=== PATIENT | female | born 1955 | race Caucasian/White ===

== ENCOUNTER 2018-01-20 11:44 | Emergency (ER) | payer OTHER, SELFPAY ==
[2018-01-20 11:48] VITALS: BP 131/55; PULSE 83; RESP 16; TEMP 37; O2SAT 98
--- NOTE | 2018-01-20 12:25 | DI.CT_ITS ---
SYMPTOMS/DIAGNOSIS: ABDOMINAL WALL ABSCESS ABDOMINAL AND PELVIC CT: The study was carried out with an intravenous injection of 100 cc's of Omnipaque 350. There are small regions of dependent atelectasis involving the lung bases. The liver is unremarkable. The patient is status post cholecystectomy. The pancreas and spleen are unremarkable. A 2 cm right upper pole right renal cyst is noted. The kidneys are otherwise unremarkable. The adrenals are normal. There is no evidence of bowel obstruction. The appendix is not seen, but there is nothing to suggest an acute appendix. There are a few scattered diverticula involving the distal descending colon. There is no evidence of diverticulitis. There is no evidence of free air or free fluid in the intraperitoneal space. The bladder is suboptimally distended but appears intact. The uterus is retroflexed. Somewhat prominent blood vessels are identified in the perirectal and periuterine soft tissues. There is a 4.3 x 2.8 cm area of increased absorption in the subcutaneous fat lying in the midline just above the level of the umbilicus which certainly could represent a small abscess. There is no evidence of an abdominal hernia. There are atherosclerotic changes involving the aorta without evidence of an aneurysm. SUMMARY: A 4.3 x 2.8 cm region of increased absorption in the midline subcutaneous fat in the mid abdomen is demonstrated and would be consistent with an abscess.
--- NOTE | 2018-01-20 12:29 | ED.GENADUL_ITS ---
Discharge Plan Disposition Patient Disposition: HOME Condition: Stable Discharge Details Chief Complaint: Cellulitis Clinical Impression: Abdominal wall cellulitis Primary Care Provider: Wilber Diaz ED Provider: Ronnie Humphries Home Meds and New Rx's Prescriptions: New cephalexin [Keflex] 500 mg capsule 500 mg PO QID Qty: 28 RF: 0 doxycycline hyclate 100 mg tablet 100 mg PO BID Qty: 14 RF: 0 Continue cholecalciferol (vitamin D3) 1,000 UNIT capsule 1,000 unit PO DAILY Qty: 90 RF: 4 losartan 50 MG tablet 25 mg PO qd Qty: 90 RF: 4 hydrochlorothiazide 12.5 MG tablet 12.5 mg PO DAILY Qty: 90 RF: 4 Discharge Instructions Instructions: Cellulitis (ED) Additional Instructions: For any rapidly worsening symptoms, fever, or not improving please feel free to return to the emergency department otherwise call your primary care office in the morning for arrangement of follow-up appointment for reassessment preferably in 3 days. Take your antibiotics until fully complete and you may continue to use [id number] pain medication as needed for discomfort. Referrals: Wilber Diaz MD [Primary Care Provider] - 3 days (For reassessment of cellulitis) Discharge Data Discharge Date/Time-TO BE ENTERED AT DEPARTURE: 01/20/18 14:22 Medical Decision Making MDM Narrative Medical decision making narrative: Patient presenting to the emergency department for chief complaint of abdominal wall cellulitis. Patient states approximately 1 week ago she noticed a small pimple chest superior to the right of her umbilicus. Patient attempted to express any fluid from this area was unable to. Over the next couple days it seemed to worsen and in the last 48 hours has become significantly reddened, firm, and increase in tenderness. Patient does state some chills yesterday that she attributes to the change of weather but otherwise denies any fever, nausea vomiting diarrhea, chest pain or shortness of breath. Physical exam does show a significantly reddened erythematous abrasion to the abdominal wall just right superior to the umbilicus with no obvious fluctuance. Bedside ultrasound shows significant depth of possible inoculations so plan to obtain IV access, check CBC CMP, and CT abdomen for concern of infection possibly penetrating abdominal wall. Review of labs that do show a leukocytosis otherwise are nondiagnostic and CT imaging showing abdominal wall cellulitis without any involvement of the abdominal cavity and no significant abscess patient was placed upon Keflex and doxycycline and also put on referral list for primary care follow-up in 3 days for abdominal wall cellulitis. Patient encouraged to return for any new or worsening symptoms or rapid progression of redness. After discussion of diagnosis and plan of care patient states no further needs, questions, or concerns at this time. Lab Data Lab results reviewed: Yes I reviewed the patient's lab results. HPI - General Adult General Mode of arrival: ambulatory . Date/Time Provider Initiated Documentation: 01/20/18 11:59 . Limitations to Documentation: no limitations . Information obtained by: patient . History of Present Illness 62 year old F presents to the emergency department with the chief complaint of Abdominal wall, described as severe, with intensity rated at 9. Quality is described as aching and sharp, and is localized to the abdomen. Patient reports no radiation. Patient started experiencing this week(s) (1) and it has been constant. No relieving factors improve symptom(s), No exacerbating factors reported . Patient notes no other symptoms.. Patient did receive the following treatments prior to arrival, none Related Data Previous Rx's Medication Instructions Recorded cholecalciferol (vitamin D3) 1,000 unit PO DAILY #90 cap 06/26/17 hydrochlorothiazide 12.5 mg PO DAILY #90 tab-cap 06/26/17 losartan 25 mg PO qd #90 tab-cap 06/26/17 cephalexin [Keflex] 500 mg PO QID #28 cap NS 01/20/18 doxycycline hyclate 100 mg PO BID #14 tab 01/20/18 Allergies Allergy/AdvReac Type Severity Reaction Status Date / Time omeprazole AdvReac Intermediate nausea Unverified 06/26/17 10:08 General Stated Complaint: Cellulitis PAOLA: 3 Review of Systems Constitutional Denies body ache(s), Reports chills and Denies fever(s) Cardiovascular Denies chest pain and Denies dyspnea Respiratory Denies dyspnea Gastrointestinal Reports as per HPI, Reports abdominal pain, Denies melena, Denies bloating, Denies constipation, Denies diarrhea, Denies nausea and Denies vomiting Integumentary/Breasts Reports as per HPI Neurologic Denies confusion and Denies sensory deficit Psychiatric Denies confusion PFSH Family History Mother Diabetes Essential hypertension Heart disease Hyperlipidemia Cerebrovascular accident Father Heart disease Neoplasm Cerebrovascular accident Sister Neoplasm Social History Smoking/Tobacco Use Status: Never Surgical History Cholecystectomy Colonoscopy - MAC (05/03/11) Ligation of fallopian tube (~1981) Exam Const General: cooperative, no acute distress and not ill appearing Orientation: alert, awake and oriented x3 HENMT Mouth: moist mucous membranes Resp Effort & Inspection: normal respiratory effort, able to speak in complete sentences and no respiratory distress Cardio Rate: regular rate Rhythm: regular rhythm GI Inspection: obesity and other (Just superior and to the right aspect of the umbilicus patient has open sore with surrounding erythema and significant induration to the abdominal wall.) Palpation: soft, not rigid, no splenomegaly and tender other (To palpation of area surrounding superficial wound and induration) Auscultation: normal bowel sounds Skin General skin exam: no rashes or lesions noted Neuro General: alert, awake, oriented x3, moves all extremities and no focal motor deficits Sensory Exam: no sensory deficits noted Course Vital Signs Temperature 37.0 C 01/20/18 11:48 Pulse 83 01/20/18 11:48 Respiratory Rate 16 01/20/18 11:48 Blood Pressure 131/55 L 01/20/18 11:48 Pulse Oximetry 98 01/20/18 11:48 Temperature 37.0 C 01/20/18 11:48 Pulse 83 01/20/18 11:48 Respiratory Rate 16 01/20/18 11:48 Blood Pressure 131/55 L 01/20/18 11:48 Pulse Oximetry 98 01/20/18 11:48
[2018-01-20 12:44] LABS: Abs Immature Grans 0.04 k/cumm (0.0-0.09); Absolute Basophil Count 0.05 k/cumm (0.0-0.2); Absolute Monocyte Count 1.14 k/cumm (0.11-0.7); Basophils % 0.4; Eosinophils % 2.2; HCT 41.5 % (36.0-46.0); HGB 13.7 g/dL (12.0-15.5); Immature Grans % 0.3; Mean Corpuscular Volume 84.9 fL (80-95); Monocytes % 8.3; Neutrophils % 73.8; Platelet Count 324 x1000/uL (130-400); RBC 4.89 m/cumm (4.00-5.20); RBC Distribution Width 12.7 % (11.7-14.6); White Blood Cell Count 13.69 k/cumm (4.4-10.8)
[2018-01-20 12:45] LABS: Absolute Lymphocyte Count 2.05 k/cumm (1.2-3.4)
[2018-01-20 12:59] LABS: ALT 19 U/L (12-78); AST 13 U/L (15-37); Alkaline Phosphatase 105 U/L (46-116); Anion Gap 7.8 mmol/L (3-11); BUN 13 mg/dL (7-18); Bilirubin, Total 0.9 mg/dL (0.2-1.0); CO2 30.2 mmol/L (21.0-32.0); CREATININE 0.75 mg/dL (0.55-1.02); Calcium 8.4 mg/dL (8.5-10.1); Chloride 104 mmol/L (98-107); Glucose 120 mg/dL (70-100); Potassium 3.4 mmol/L (3.5-5.1); Sodium 142 mmol/L (136-145); Total Protein 6.6 g/dL (6.4-8.2)
[2018-01-20] MEDS: Omnipaque 350 MG/ML 100 ML BTL IJ (13:32)
[2018-01-20 13:48] VITALS: BP 125/62; PULSE 68; RESP 17; TEMP 37.1; O2SAT 100
[2018-01-20] MEDS: Cephalexin 500 MG CAP PO (14:12)
[2018-01-20] MEDS: Doxycycline Hyclate 100 MG CAP PO (14:12)
[2018-01-20] MEDS: Ibuprofen 400 MG TAB PO (14:12)
[2018-01-20 14:21] VITALS: BP 126/48; PULSE 16; RESP 16; TEMP 37; O2SAT 99
--- NOTE | 2018-01-21 09:00 | PDOC.ERCMPRO ---
Care Management Progress Note 01/21/18-Pt seen on 01/20/18 for abdominal wall cellulitis by Jeremias Humphries NP. F/U request within 3 days sent to [facility] as Dr. Jessica Diaz is Pt's PCP.
--- NOTE | 2018-01-21 09:01 | CMPROGNOTE_ITS ---
Care Management Progress Note 01/21/18-Pt seen on 01/20/18 for abdominal wall cellulitis by Jeremias Humphries NP. F/ U request within 3 days sent to [facility] as Dr. Jessica Diaz is Pt's PCP.
== END 2018-01-20 14:22 | disposition home or self-care (01) ==
PROVIDERS: Emergency Provider Nurse Practitioner Family; PCP Family Medicine
DX: L03.311 Cellulitis of abdominal wall (principal)
CPT/HCPCS: 80053; 99285; 74177; 85025; 99284; J3490

== ENCOUNTER 2018-02-05 09:02 | Outpatient (CLI) | payer OTHER, SELFPAY ==
[2018-02-05 10:49] LABS: Abs Immature Grans 0.01 k/cumm (0.0-0.09); Absolute Basophil Count 0.07 k/cumm (0.0-0.2); Absolute Eosinophil Count 0.31 k/cumm (0.0-0.7); Absolute Lymphocyte Count 1.66 k/cumm (1.2-3.4); Absolute Monocyte Count 0.52 k/cumm (0.11-0.7); Absolute Neutrophil Count 5.48 k/cumm (1.2-6.7); Basophils % 0.9; Eosinophils % 3.9; HCT 43.4 % (36.0-46.0); HGB 14.4 g/dL (12.0-15.5); Immature Grans % 0.1; Lymphocytes % 20.6; Mean Corp. HGB Concentration 33.2 g/dL (32.0-36.0); Mean Corpuscular Hemoglobin 28.1 pg (27.0-33.0); Mean Corpuscular Volume 84.6 fL (80-95); Mean Platelet Volume 10.8 fL (8.0-11.0); Monocytes % 6.5; Platelet Count 343 x1000/uL (130-400); RBC 5.13 m/cumm (4.00-5.20); RBC Distribution Width 13.3 % (11.7-14.6); White Blood Cell Count 8.05 k/cumm (4.4-10.8)
[2018-02-05 10:53] LABS: Hemoglobin A1C 5.9 % (4.5-6.2)
[2018-02-05 11:03] LABS: ALT 22 U/L (12-78); AST 15 U/L (15-37); Albumin 3.6 g/dL (3.4-5.0); Alkaline Phosphatase 107 U/L (46-116); Anion Gap 10.2 mmol/L (3-11); BUN 19 mg/dL (7-18); Bilirubin, Total 0.8 mg/dL (0.2-1.0); CO2 23.8 mmol/L (21.0-32.0); CREATININE 0.85 mg/dL (0.55-1.02); Chloride 109 mmol/L (98-107); Glucose 97 mg/dL (70-100); Potassium 4.8 mmol/L (3.5-5.1); Sodium 143 mmol/L (136-145); Total Protein 7.1 g/dL (6.4-8.2)
== END 2018-02-05 09:22 ==
PROVIDERS: PCP Family Medicine; Visit Provider Internal Medicine
DX: E87.6 Hypokalemia (principal); R73.09 Other abnormal glucose; L03.90 Cellulitis, unspecified
CPT/HCPCS: 36415; 80053; 83036; 85025

== ENCOUNTER 2018-03-03 00:08 | Outpatient (CLI) | payer OTHER, SELFPAY ==
--- NOTE | 2018-03-03 14:05 | MERGE_ITS ---
*[facility]* *[facility]* [address] [place] [address] Date of study: 03/03/2018 Transthoracic Echocardiography M-mode, complete 2D, complete spectral Doppler, and color Doppler *STUDY CONCLUSIONS* Impressions: Aortic stenosis, new since the study of 2012. Otherwise no significant changes. Summary: 1. Left ventricle: The cavity size was mildly dilated. There was moderate focal basal hypertrophy of the septum. Systolic function was normal. The estimated ejection fraction was 60-65%. Wall motion was normal; there were no regional wall motion abnormalities. 2. Aortic valve: Trileaflet; mildly thickened, mildly calcified leaflets. Valve mobility was restricted. There was moderate regurgitation. Peak velocity (S): 3.2m/sec. VTI ratio of LVOT to aortic valve: 0.43. Valve area (VTI): 1.4cm^2. 3. Mitral valve: There was mild to moderate regurgitation directed posteriorly. 4. Right ventricle: The cavity size was normal. Wall thickness was normal. Systolic function was normal. *PATIENT PRESENTATION* Height: 160cm ((63in) ) S/D Pressure: 129 / 55 Weight: 77.1kg ((169.6lb) ) BSA: 1.88m^2 Test start time: 02:22 PM. Test stop time: 03:20 PM. PERFORMING Unknown PERFORMING [facility] ORDERING Charlene Haley REFERRING Charlene Haley COMSEC MANAGER Sara Stroud, (R)(CT), [facility] *PROCEDURE DATA* Procedure information: The patient was identified by two identifiers. This study was interpreted by [facility]. Pertinent images and digital data are archived for permanent storage and are available for subsequent review. Comparison was made to the study of 01/29/2013. Study status: Routine. Transthoracic echocardiography. M-mode, complete 2D, complete spectral Doppler, and color Doppler. A Transthoracic Echocardiogram was performed. Scanning was performed from the parasternal, apical, subcostal, and suprasternal notch acoustic windows. Images were obtained using an [id number] cardiac ultrasound machine. Image quality was adequate. Study completion: The patient tolerated the procedure well. There were no complications. History: PMH: Cardiac murmur. Hx of rheumatic fever. personal h/o disease of circulatory system. *CARDIAC ANATOMY* Left ventricle: The cavity size was mildly dilated. There was moderate focal basal hypertrophy of the septum. Systolic function was normal. The estimated ejection fraction was 60-65%. Wall motion was normal; there were no regional wall motion abnormalities. Diastolic parameters were not diagnostic. Aortic valve: Trileaflet; mildly thickened, mildly calcified leaflets. Valve mobility was restricted. Doppler: Transvalvular velocity was within the normal range. There was no stenosis. There was moderate regurgitation. VTI ratio of LVOT to aortic valve: 0.43. Valve area (VTI): 1.4cm^2. Indexed valve area (VTI): 0.7cm^2/m^2. Peak velocity ratio of LVOT to aortic valve: 0.42. Valve area (Vmax): 1.3cm^2. Indexed valve area (Vmax): 0.7cm^2/m^2. Mean velocity ratio of LVOT to aortic valve: 0.44. Valve area (Vmean): 1.4cm^2. Indexed valve area (Vmean): 0.7cm^2/m^2. Mean gradient (S): 23.1mm Hg. Peak gradient (S): 41.5mm Hg. Aorta: Aortic root: The aortic root was at upper normal limits. Ascending aorta: The ascending aorta was normal in size. Mitral valve: Structurally normal valve. Mobility was not restricted. Doppler: Transvalvular velocity was within the normal range. There was no evidence for stenosis. There was mild to moderate regurgitation directed posteriorly. Valve area by pressure half-time: 3cm^2. Indexed valve area by pressure half-time: 1.6cm^2/m^2. Peak gradient (D): 5.4mm Hg. Left atrium: The atrium was normal in size. Right ventricle: The cavity size was normal. Wall thickness was normal. Systolic function was normal. Pulmonic valve: Doppler: Transvalvular velocity was within the normal range. There was no evidence for stenosis. There was no significant regurgitation. Peak gradient (S): 3.7mm Hg. Tricuspid valve: Structurally normal valve. Doppler: Transvalvular velocity was within the normal range. There was no evidence for stenosis. There was trivial regurgitation. Pulmonary artery: Pulmonary systolic pressure was within the normal range, in the range of 25mm Hg to 30mm Hg. Right atrium: The atrium was normal in size. Pericardium: There was no pericardial effusion. Systemic veins: Inferior vena cava: Well visualized. The vessel was patent and normal in size. The respirophasic diameter changes were in the normal range (greater than or equal to 50%). Baseline ECG: Sinus bradycardia. Measurements Left ventricle Value Reference LV ID, ED, PLAX 5.9 cm 3.5 - 6.0 LV ID, ES, PLAX (H) 4.1 cm 2.1 - 4.0 LV PW thickness, ED, PLAX 0.9 cm LV end-diastolic volume, 1-p A2C 102 ml LV ejection fraction, 1-p A2C 61 % LV end-diastolic volume, 1-p A4C 98 ml LV ejection fraction, 1-p A4C 52 % LV e', lateral 0.082 m/sec LV E/e', lateral 14 LV e', medial 0.064 m/sec LV E/e', medial 18 LV e', average 0.073 m/sec LV E/e', average 16 Ventricular septum Value Reference IVS thickness, ED, PLAX 0.7 cm LVOT Value Reference LVOT ID, S 2.0 cm LVOT area 3.1 cm^2 LVOT peak velocity, S 1.36 m/sec LVOT mean velocity, S 0.99 m/sec LVOT VTI, S 34.2 cm LVOT peak gradient, S 7.4 mm Hg LVOT mean gradient, S 4.4 mm Hg Stroke volume (SV), LVOT DP 100 ml Stroke index (SV/bsa), LVOT DP 53 ml/m^2 Aortic valve Value Reference Aortic valve peak velocity, S 3.2 m/sec Aortic valve mean velocity, S 2.25 m/sec Aortic valve VTI, S 79.0 cm Aortic mean gradient, S 23.1 mm Hg Aortic peak gradient, S 41.5 mm Hg VTI ratio, LVOT/AV 0.43 Aortic valve area, VTI 1.4 cm^2 Velocity ratio, peak, LVOT/AV 0.42 Aortic valve area, peak velocity 1.3 cm^2 Velocity ratio, mean, LVOT/AV 0.44 Aortic valve area, mean velocity 1.4 cm^2 Aortic valve area/bsa, mean velocity 0.7 cm^2/m^2 Aorta Value Reference Aortic root ID, ED 3.8 cm Ascending aorta ID, A-P, S 3.7 cm RVOT Value Reference RVOT VTI, S 17.9 cm Left atrium Value Reference LA ID, A-P, ES 3.0 cm LA ID/bsa, A-P 1.6 cm/m^2 <=2.2 LA area, ES, A4C 18 cm^2 8.8 - 23.4 LA area, ES, A2C 18 cm^2 LA volume/bsa, ES, 1-p A4C 30 ml/m^2 LA volume, ES, 2-p 47 ml LA volume/bsa, ES, 2-p 25 ml/m^2 LA/aortic root ratio 0.8 Mitral valve Value Reference Mitral E-wave peak velocity 1.16 m/sec Mitral A-wave peak velocity 1.21 m/sec Mitral deceleration time (H) 253 ms 150 - 230 Mitral pressure half-time 73 ms Mitral peak gradient, D 5.4 mm Hg Mitral E/A ratio, peak 0.97 Mitral valve area, PHT, DP 3 cm^2 Pulmonary veins Value Reference Pulmonary vein peak velocity, S 0.64 m/sec Pulmonary vein peak velocity, D 0.48 m/sec Pulmonary vein velocity ratio, peak, 1.34 S/D Pulmonary vein A-wave reversal peak 0.35 m/sec velocity Pulmonary vein A-wave reversal 149 ms duration Tricuspid valve Value Reference Tricuspid regurg peak velocity 2.2 m/sec Tricuspid peak RV-RA gradient 19.4 mm Hg Right atrium Value Reference RA area, ES, A4C 9.6 cm^2 8.3 - 19.5 Pulmonic valve Value Reference Pulmonic peak gradient, S 3.7 mm Hg Legend: (L) and (H) ifeanyi values outside specified reference range. I have personally reviewed the images and have reviewed and edited the reported findings. Electronically signed by Nico Woods 03/03/2018 16:57
== END 2018-03-03 00:28 ==
PROVIDERS: PCP Family Medicine; Visit Provider Internal Medicine
DX: R01.1 Cardiac murmur, unspecified (principal); I08.0 Rheumatic disorders of both mitral and aortic valves
CPT/HCPCS: 93306

== ENCOUNTER 2018-06-29 20:00 | Outpatient (REF) | payer OTHER, SELFPAY ==
--- NOTE | 2018-06-29 14:45 | PAPFT_PTH ---
PATIENT: Mandi Vizcaino LOC: [facility] U#:[id number] AGE/SX: 62/F ROOM: RE06/29/[address]: Veronika Vera APRN : 1955 BED: DIS: 06/29/2018 SPEC #: [id number] RECD: 06/30/18 12:43 STATUS: ELPIDIO REAshley #: [id number] LEXI: 06/29/18 14:[address]: Veronika Vera DEPT: [facility] Cytology RECD BY: Barb Joseph Tissues: 1 - CX/ENDOCX FOR PAP SMEARS Procedures: PAP THIN PREP/UVM Screening HPV DNA PROBE Comments: [id number]
== END 2018-06-29 20:20 ==
LOC: LBN 20:00
DX: Z12.4 Encounter for screening for malignant neoplasm of cervix (principal); Z11.51 Encounter for screening for human papillomavirus (HPV)
CPT/HCPCS: 88142; 87624

== ENCOUNTER 2019-02-16 13:52 | Outpatient (REF) | payer OTHER, SELFPAY ==
[2019-02-16 14:49] LABS: Bilirubin Negative (Negative); Blood Trace-intact (Negative); Clarity Clear (Clear); Glucose Negative (Negative); Ketones Negative (Negative); Leukocyte Esterase Negative (Negative); Nitrite Negative (Negative); Specific Gravity 1.025 (1.005-1.025); Urobilinogen 0.2 EU/dL (Up TO 0.2); pH 5.5 (5-8)
[2019-02-16 15:09] LABS: Bacteria Negative HPF (Negative); Epithelial Cells Few HPF (Negative); RBC 0-2 (0-2); WBC 0-2 HPF (0-5)
[2019-02-16 15:10] LABS: C & S Indicated? No; Casts Negative LPF (Negative); Crystals Mod Calcium Oxalate HPF (Negative); Mucus Negative (Negative)
== END 2019-02-16 14:12 ==
LOC: LBN 13:52
DX: N39.0 Urinary tract infection, site not specified (principal)
CPT/HCPCS: 81003; 81015

== ENCOUNTER 2019-05-18 10:13 | Outpatient (CLI) | payer OTHER, MEDICARE, SELFPAY ==
[2019-05-18 11:31] LABS: HCT 44.8 % (36.0-46.0); HGB 14.9 g/dL (12.0-15.5); Mean Corp. HGB Concentration 33.3 g/dL (32.0-36.0); Mean Corpuscular Hemoglobin 28.1 pg (27.0-33.0); Mean Corpuscular Volume 84.5 fL (80-95); Mean Platelet Volume 9.4 fL (8.0-11.0); Platelet Count 335 x1000/uL (130-400); RBC Distribution Width 12.9 % (11.7-14.6); White Blood Cell Count 7.26 k/cumm (4.4-10.8)
[2019-05-18 12:52] LABS: ALT 24 U/L (14-59); AST 14 U/L (15-37); Albumin 3.9 g/dL (3.4-5.0); Alkaline Phosphatase 86 U/L (46-116); Anion Gap 8.5 mmol/L (3-11); BUN 17 mg/dL (7-18); Bilirubin, Total 0.9 mg/dL (0.2-1.0); CO2 29.5 mmol/L (21.0-32.0); Calcium 9.4 mg/dL (8.5-10.1); Chloride 104 mmol/L (98-107); Glucose 84 mg/dL (74-106); Potassium 4.7 mmol/L (3.5-5.1); Sodium 142 mmol/L (136-145); Total Protein 7.2 g/dL (6.4-8.2)
== END 2019-05-18 10:33 ==
PROVIDERS: Visit Provider Obstetrics & Gynecology Gynecology
DX: N81.4 Uterovaginal prolapse, unspecified (principal); Z01.818 Encounter for other preprocedural examination; Z01.812 Encounter for preprocedural laboratory examination
CPT/HCPCS: 36415; 80053; 85027; 86850; 86900; 86901

== ENCOUNTER 2019-05-19 09:54 | Observation (INO) | payer OTHER, MEDICARE, SELFPAY ==
[2019-05-18 10:37] VITALS: BP 148/70; PULSE 59; O2SAT 98
[2019-05-19] VITALS (17 sets, daily range): BP systolic 105–159; BP diastolic 39–74; PULSE 51–69; RESP 12–20; TEMP 36.3–37.8; O2SAT 96–100
[2019-05-19] MEDS: Lactated Ringers 1,000 ML 125 ML IV ×3 (06:46→16:52)
[2019-05-19] MEDS: ceFAZolin 2 GM/50 ML BAG IVPB (07:45)
--- NOTE | 2019-05-19 08:27 | UTER_PTH ---
PATIENT: Mandi Vizcaino LOC: OBS U#:[id number] AGE/SX: 63/F ROOM: OBS.305 RE05/19/[address]: Amber Villalpando : 1955 BED: A DIS: 05/20/2019 SPEC #: [id number] RECD: 05/19/19 13:14 STATUS: ELPIDIO REQ #: [id number] LEXI: 05/19/19 08:[address]: Amber Villalpando DEPT: Surgical Specimen RECD BY: Barb Joseph ENTERED: 05/19/19 13:16 SP TYPE: UTER OTHR DR: Veronika Vera APRN Tissues: 1 - UTERUS W OR W/O OVARIES(NOT TUMOR/PROLAPSE) Procedures: GROSS AND MICRO LEVEL 5 Comments: [id number]
--- NOTE | 2019-05-19 12:09 | NUR.NOTE ---
Pt sleeping. VS stableNursing Note:
[2019-05-19] MEDS: Docusate Sodium 100 MG CAP PO (20:31)
[2019-05-19] MEDS: Ketorolac 30 MG/ML VIAL IVP (20:32)
--- NOTE | 2019-05-19 21:46 | ROE_ITS ---
Date of service: 05/19/19 Time of Service: 21:46 Operative Note Operative Note DATE OF PROCEDURE: 05/19/19 PRE-OP DIAGNOSIS: Stage III uterine prolapse POST-OP DIAGNOSIS: same PROCEDURE: Transvaginal hysterectomy bilateral salpingo-oophorectomy and bladder cystoscopy SURGEON: Amber Villalpando COMPENSATION AND BENEFITS ADVISOR: Pete Ring ANESTHESIA: GETA ESTIMATED BLOOD LOSS: 20 PATHOLOGY: other (Uterus cervix bilateral adnexa to pathology) COMPLICATIONS: None Patient was transported to: PACU Patient's condition: stable Indications: 63-year-old postmenopausal female with symptomatic uterine prolapse. She had unsuccessfully attempted pessary fitting and decision was made to proceed with hysterectomy and bilateral salpingo-oophorectomy Findings: Both ovaries were small and appeared normal. Uterus was small and the uterine cervix extended to the introitus with the patient in the lithotomy position. Anterior vaginal epithelium well rugated with virtually no prolapse. The posterior vaginal wall well supported. Procedure Description: Patient was taken the operating room where she was placed in the dorsal supine position and general endotracheal anesthesia was administered without difficulty. She was then placed in the dorsal lithotomy position in [facility] with SCDs in place. She had received 2 g of Ancef upon entry into the operating room. Surgical timeout was performed. Saleh catheter was inserted to gravity drainage and left in place during the case. The body of the cervix was infiltrated in a circumferential fashion with 1% lidocaine with a dilute solution of epinephrine. A both electrocautery was then used to incise the cervix at the distal end of the cervix. The vesicle fascia was dissected off of the underlying cervix using a moistened sponge this was performed laterally laterally and along the posterior cervical rectal fascia. The bladder was retracted off of the cervix to allow visualization of the bladder reflection and the anterior cul-de-sac was entered without difficulty. The bladder was retracted away from the operative field with a curved [place] clamp. Posterior cul-de-sac was entered sharply with curved Arteaga scissors and through the incision a longbilled weighted speculum was placed. A curved Zeppelin clamp was used to clamp the right uterosacral cardinal ligament which was then transected and suture-ligated with 0 Vicryl and held long. Similar technique was carried out on the contralateral uterosacral ligaments. The remaining broad ligament was clamped in a sequential fashion using Zeppelin clamps sequentially cut and suture ligated until both the right and left uterine cornua had been clamped cut and the pedicle suture ligated. Uterus was delivered off of the operative field. All pedicles were noted to be hemostatic. The left ovary and fallopian tube remnant was grasped with a ring forcep placed on tension to allow visualization clamped with a curved Zeppelin clamp transected and the pedicle suture-ligated. Similar technique was carried out on the contralateral adnexa. Both pedicles were hemostatic upon inspection. The patient's prolapse was carefully examined and was felt that based on her anatomy and the support from her distal uterosacral and cardinal ligament pedicles that a uterosacral ligament suspension would not be required for adequate repair of her prolapse. The peritoneum was grasped and closed in a pursestring fashion with 2-0 Vicryl. The vaginal cuff was reapproximated in a vertical fashion with a running locked suture of 0 Vicryl. 2 separate sutures of 0 Vicryl were used to incorporate the vaginal cuff to the right and left uterosacral cardinal ligament complexes. The remaining vaginal cuff was closed with a running lock suture of 0 Vicryl. At the completion of the procedure the vaginal cuff was hemostatic. A bladder cystoscopy was performed with normal saline as a distention medium. Both right and left ureteral orifices were seen peristalsing and releasing urine. Cystoscopy was completed and the bladder emptied and a Saleh catheter dustin nserted. She was placed in the dorsal supine position and awakened extubated and transported recovery area in stable condition all sponge lap needle counts are correct x2
[2019-05-20] VITALS: BP 135/61; PULSE 69; RESP 18; TEMP 36.4; O2SAT 98
[2019-05-20 03:51] VITALS: BP 148/54; PULSE 69; RESP 18; TEMP 36.7; O2SAT 97
[2019-05-20 06:42] LABS: HCT 38.6 % (36.0-46.0); HGB 12.9 g/dL (12.0-15.5); Mean Corp. HGB Concentration 33.4 g/dL (32.0-36.0); Mean Corpuscular Hemoglobin 28.5 pg (27.0-33.0); Mean Corpuscular Volume 85.2 fL (80-95); Mean Platelet Volume 9.7 fL (8.0-11.0); Platelet Count 297 x1000/uL (130-400); RBC 4.53 m/cumm (4.00-5.20); RBC Distribution Width 12.7 % (11.7-14.6); White Blood Cell Count 11.27 k/cumm (4.4-10.8)
[2019-05-20 06:56] LABS: Anion Gap 7.9 mmol/L (3-11); BUN 15 mg/dL (7-18); CO2 29.1 mmol/L (21.0-32.0); CREATININE 0.69 mg/dL (0.55-1.02); Calcium 8.9 mg/dL (8.5-10.1); Chloride 103 mmol/L (98-107); Glucose 144 mg/dL (74-106); Potassium 4.2 mmol/L (3.5-5.1); Sodium 140 mmol/L (136-145)
--- NOTE | 2019-05-20 07:45 | W.PM.DS.N ---
Date of service: 05/20/19 Time of Service: 07:45 DS: Diagnosis Discharge Diagnosis (1) H/O vaginal hysterectomy: Status: Acute (2) H/O bilateral salpingo-oophorectomy: Status: Acute (3) Uterine prolapse: Status: Resolved Discharge Plan Disposition Patient Disposition: HOME Condition: Fair Discharge Details Reason For Visit: VAGINAL HYSTERECTOMY AND BSO Admit Date/Time: 05/19/19 09:54 Admit Provider: Amber Villalpando Attending Provider: Amber Villalpando Primary Care Provider: Veronika Vera Hospital Course Hospital Course: Patient was admitted the day of surgery and underwent the above-stated procedure with bladder cystoscopy. Vaginal vault was suspended to the uterosacral ligaments with out requiring and intra-peritoneal approach. She was able to void successfully on postop day 1. Vital signs are stable. Patient not require narcotics for analgesia. Plan [facility]. Home Meds and New Rx's Prescriptions: No Action cholecalciferol (vitamin D3) 1,000 UNIT capsule 1,000 unit PO DAILY Qty: 90 RF: 4 acetaminophen 500 mg Tablet 500 mg PO PRN PRNRF: 0 ibuprofen [IBU] 400 mg Tablet 400 mg PO PRN PRNRF: 0 Discharge Instructions Stand Alone Forms: DSU Post Gynecology Surgery Activity:: No lifting over 10 pounds Equipment/Supplies:: No Equipment Needed Diet:: As Tolerated Discharge Orders Discharge Orders: Discharge Order (Routine); Ordered 05/20/19 Ordered By: Amber Villalpando DS: Summary Status at Discharge Functional status at discharge: independent ambulation Overall status at discharge: patient is progressing back to baseline Mental Status: mental status grossly normal Speech and Movement: speech and movement normal Mood: congruent mood Affect: normal affect Exam Const General: no acute distress Nutritional Appearance: average body habitus Orientation: alert, awake and oriented x3 HENMT Ears: hearing grossly impaired (Patient not wearing hearing aids, she is reading lips.) Resp Effort & Inspection: normal respiratory effort Auscultation: clear to auscultation bilaterally Cardio Rate: regular rate Rhythm: regular rhythm GI Palpation: soft and nontender General: deferred Back/Spine/Pelvis Back: no CVA tenderness Skin General skin exam: no rashes or lesions noted Extrem General: normal to inspection, full ROM and normal capillary refill (SCDs off) Psych Appearance: grossly normal Mental Status: mental status grossly normal Speech and Movement: speech and movement normal Mood: congruent mood Affect: normal affect DS: Data Vitals/I&O Vitals and I&O: Vital Signs Temperature 98.1 F 05/20/19 03:51 Temperature Source Oral 05/20/19 03:51 Pulse 69 05/20/19 03:51 Pulse Rhythm Regular 05/19/19 23:55 Respiratory Rate 18 05/20/19 03:51 Respiratory Effort 05/19/19 23:55 Respiratory Depth Normal 05/19/19 23:55 Respiratory Pattern Irregular 05/19/19 23:55 Blood Pressure 148/54 H 05/20/19 03:51 Pulse Oximetry 97 05/20/19 03:51 Respiratory End-tidal CO2 39 05/19/19 10:05 Oxygen Delivery Method Room Air 05/20/19 03:51 Oxygen Flow Rate 0 05/20/19 03:51 Pain Level 2 05/20/19 03:51 Intake & Output 05/19/19 05/19/19 05/20/19 11:59 23:59 11:59 Intake Total 1050 / 2466.667 1416.667 / 2466.667 Output Total 50 / 1500 1450 / 1500 2700 / 2700 Balance 1000 / 966.667 -33.333 / 966.667 -2700 / -2700 Weight 163 lb 5.8 oz Intake: IV 1050 / 2466.667 1416.667 / 2466.667 Output: Urine 50 / 1500 1450 / 1500 2700 / 2700 Other: Urine Color Pale Pale Yellow Yellow Yellow Urine Appearance Clear Clear Clear Urine Odor None Emesis Description None Data Completed and Pending Labs on day of discharge: Labs from last 24 hours 05/20/19 05/20/19 06:30 06:30 WBC 11.27 H RBC 4.53 Hgb 12.9 Hct 38.6 MCV 85.2 MCH 28.5 MCHC 33.4 RDW 12.7 Plt Count 297 MPV 9.7 Sodium 140 Potassium 4.2 Chloride 103 Carbon Dioxide 29.1 Anion Gap 7.9 BUN 15 Creatinine 0.69 Estimated GFR/1.73 m2 >= 60.00 Glucose 144 H Calcium 8.9 PFSH Social History (Updated 03/08/19 @ 12:42 by Amber Villalpando MD) Smoking/Tobacco Use Status: Never Alcohol Intake: current Alcohol type: wine Drug use: Never Substance use type: does not use Caregiver/Support person: No Household members: spouse Housing: apartment Number of Children: 3 current occupation: [employer]. Pets and animals: Yes Pets and animals: cat(s) Sexually active: No Current gender identity: decline to answer What is your relationship status?: How often do you talk on the phone with friends or family?: decline to answer How often do you get together with friends or relatives?: decline to answer How often do you attend mandaen or gnosticist services?: decline to answer Do you belong to any clubs or organized social groups?: decline to answer Panel score (0-1 are the most socially isolated patients): 1 What type of physical activity do you participate in: none Ainsley/Holiness: No preference Special ainsley needs: No Do you feel safe at home: Yes Do you feel safe in your relationship?: Yes Female Reproductive History Menstrual Menopause type: natural (late 50s.) History History 3 Para 3 Hx # Term Pregnancies 3 Multiple births Hx # Pregnancies Ectopic pregnancies AB induced Hx Number of Living Children 3 AB spontaneous
[2019-05-20 09:17] VITALS: BP 136/48; PULSE 53; RESP 16; TEMP 36.8; O2SAT 98
[2019-05-20] MEDS: Ibuprofen 600 MG TAB PO (09:43)
== END 2019-05-20 10:00 | disposition home or self-care (01) ==
LOC: OBS 05-20 07:53
PROVIDERS: Admitting Provider Obstetrics & Gynecology Gynecology; Visit Provider Obstetrics & Gynecology Gynecology
PROC: 0UT97ZZ Resection of Uterus, Via Natural or Artificial Opening (ICD-10-PCS; CPT 58260; principal; 2019-05-19 07:30)
DX: N81.3 Complete uterovaginal prolapse (principal); N80.0 Endometriosis of uterus; N80.2 Endometriosis of fallopian tube; N80.1 Endometriosis of ovary; D25.1 Intramural leiomyoma of uterus; N72 Inflammatory disease of cervix uteri; E11.9 Type 2 diabetes mellitus without complications; K21.9 Gastro-esophageal reflux disease without esophagitis
CPT/HCPCS: 58262; 36415; 80048; 85027; NC; 88307; J0131; J0690; J1100; J1200; J1885; J2001; J2250; J2405; J2704; J3010

== ENCOUNTER 2019-06-22 07:58 | Outpatient (CLI) | payer OTHER, MEDICARE, SELFPAY ==
[2019-06-22 09:19] LABS: Hemoglobin A1C 5.8 % (3.8-5.6)
[2019-06-22 09:24] LABS: ALT 20 U/L (14-59); AST 17 U/L (15-37); Albumin 3.7 g/dL (3.4-5.0); Alkaline Phosphatase 93 U/L (46-116); Anion Gap 7.6 mmol/L (3-11); BUN 19 mg/dL (7-18); Bilirubin, Total 0.9 mg/dL (0.2-1.0); CO2 28.4 mmol/L (21.0-32.0); CREATININE 0.69 mg/dL (0.55-1.02); Calcium 8.9 mg/dL (8.5-10.1); Chloride 107 mmol/L (98-107); Glucose 99 mg/dL (74-106); Potassium 4.4 mmol/L (3.5-5.1); Sodium 143 mmol/L (136-145); TSH (W/Ref FT4) 1.61 uIU/mL (0.36-3.74); Total Protein 6.7 g/dL (6.4-8.2)
[2019-06-22 09:47] LABS: Calculated LDL 113 mg/dL (<100); Cholesterol 170 mg/dL (<200); HDL Cholesterol 42 mg/dL (40-60); Triglyceride 79 mg/dL (<150)
== END 2019-06-22 08:18 ==
DX: E11.9 Type 2 diabetes mellitus without complications (principal); I10 Essential (primary) hypertension; I35.1 Nonrheumatic aortic (valve) insufficiency; I83.93 Asymptomatic varicose veins of bilateral lower extremities; E03.9 Hypothyroidism, unspecified; K21.9 Gastro-esophageal reflux disease without esophagitis; G47.00 Insomnia, unspecified; Z83.49 Family history of other endocrine, nutritional and metabolic diseases
CPT/HCPCS: 36415; 80053; 80061; 83036; 84443

== ENCOUNTER 2019-11-01 01:47 | Outpatient (CLI) | payer OTHER, MEDICARE, SELFPAY ==
--- NOTE | 2019-11-01 10:15 | DI.MAMMO_ITS ---
EXAM: MG MAMMO SCREENING CLINICAL HISTORY: screening, Z12.39 TECHNIQUE: Bilateral full field digital CC and MLO mammographic images were obtained with 3D tomosyn thesis and utilizing computer aided detection (CAD). COMPARISON: Available for comparison. FINDINGS: Masses/Architectural Distortion: None seen. Microcalcifications: No suspicious pleomorphic-type are seen. Skin Thickening/Nipple Retraction: None. IMPRESSION: 1. No significant interval change with no specific features of malignancy noted. 2. Unless there is more urgent need, screening mammography is recommended, as per [employer] guidelines. BI-RADS Category 1 - Negative Breast Density - Category B - Scattered areas of fibroglandular density A negative radiographic report should not delay biopsy if a dominant or clinically suspicious mass is present. Up to ten percent of cancers are not identified on mammography. A negative report may reinforce clinical impression. Adenosis and dense breasts may obscure an underlying neoplasm. False positive reports average 6 to 10%. Patient will receive a letter notifying them of these results.
== END 2019-11-01 02:07 ==
DX: Z12.31 Encounter for screening mammogram for malignant neoplasm of breast (principal)
CPT/HCPCS: 77063; 77067

== ENCOUNTER 2020-06-28 02:35 | Outpatient (CLI) | payer OTHER, MEDICARE, SELFPAY ==
[2020-06-28 07:56] LABS: Hemoglobin A1C 5.9 % (<5.7)
[2020-06-28 08:23] LABS: ALT 23 U/L (14-59); AST 17 U/L (15-37); Albumin 3.8 g/dL (3.4-5.0); Alkaline Phosphatase 101 U/L (46-116); Anion Gap 10.9 mmol/L (3-11); BUN 25 mg/dL (7-18); Bilirubin, Total 1.2 mg/dL (0.2-1.0); CO2 28.1 mmol/L (21.0-32.0); CREATININE 0.7 mg/dL (0.55-1.02); Calcium 9.2 mg/dL (8.5-10.1); Calculated LDL 125 mg/dL (<100); Chloride 105 mmol/L (98-107); Cholesterol 194 mg/dL (<200); Glucose 104 mg/dL (74-106); HDL Cholesterol 53 mg/dL (40-60); Potassium 4.2 mmol/L (3.5-5.1); Sodium 144 mmol/L (136-145); Total Protein 7.2 g/dL (6.4-8.2); Triglyceride 81 mg/dL (<150)
== END 2020-06-28 02:36 | disposition home or self-care (01) ==
LOC: LBO 02:36
DX: Z00.00 Encounter for general adult medical examination without abnormal findings (principal); R63.8 Other symptoms and signs concerning food and fluid intake; Z13.220 Encounter for screening for lipoid disorders; E11.9 Type 2 diabetes mellitus without complications
CPT/HCPCS: 36415; 80053; 80061; 83036

== ENCOUNTER 2020-12-15 03:06 | Outpatient (CLI) | payer OTHER, MEDICARE, SELFPAY ==
--- NOTE | 2020-12-15 07:15 | DI.US_ITS ---
APPROVED REPORT EXAM: Comprehensive 2D, Doppler, and color-flow Echocardiogram Patient Location: Out-Patient Manager Language: Ange Sorenson RDCS (AE) Indications: Aortic Regurgitation, Aortic stenosis, Pre operative exam Other Information Study Quality: Adequate Conclusion Normal left ventricular chamber size and systolic function. Estimated ejection fraction is approxima tely 60%. Wall motion is normal Normal right ventricular size and systolic function Both atria are normal in size The aortic valve is trileaflet and sclerotic. There is mild aortic stenosis, moderate mitral regurgi tation Mild mitral annular calcification, mild mitral regurgitation Dilated ascending aorta measuring 4.12 cm Wall motion Left Ventricle The left ventricle is normal size. The left ventricular systolic function is normal. The left ventric ular ejection fraction is within the normal range. Mild basal septal hypertrophy is present. There is normal LV segmental wall motion. There is no ventricular septal defect visualized. LVEF is 58%. Right Ventricle The right ventricle is normal size. The right ventricular systolic function is normal. The RVSP is 20 .6 mmHg. Atria The left atrium size is normal. The right atrium size is normal. The interatrial septum is intact wit h no evidence for an atrial septal defect. Aortic Valve Aortic valve is calcified. Aortic valve is trileaflet. Mild aortic stenosis. Peak aortic valve gradie nt is 28.9mmHg. Highest mean aortic valve gradient is 15.3mmHg. Calculated STEVEN by the continuity equa tion is 1.6cm2. Moderate aortic regurgitation. Mitral Valve Mild mitral annular calcification. No evidence of mitral valve stenosis. Mild mitral regurgitation. B ioprosthetic mitral valve appears normal. Bioprosthetic mitral valve appears abnormal. Bioprosthetic mitral valve appears well seated. Bioprosthetic mitral valve appears to open well. Tricuspid Valve The tricuspid valve is normal in structure. There is no tricuspid valve stenosis. Trace tricuspid reg urgitation. Pulmonic Valve The pulmonary valve is normal in structure. There is no pulmonic valvular stenosis. Trace pulmonic re gurgitation. Great Vessels The aortic root is normal in size. The ascending aorta is dilated. Aortic arch is normal in caliber. IVC is normal in size and collapses >50% with inspiration. Pericardium There is no pericardial effusion. 2D Dimensions IVSD d PLAX 1.24 cm F: 0.6-1.0 LV Vol A2C d MOD 141.9 mL LVPW d PLAX 1.01 cm F: 0.6 - 1.0 LV Vol A4C d MOD 151.9 mL LVID d PLAX 4.52 cm F: 3.8 - 5.2 LA vol/ BSA A2C s A-L 35.8 mL/m2 LVDs 3.05 cm F: 2.2 - 3.5 LA vol/ BSA A4C s A-L 19.4 mL/m2 Ao Root d 3.36 cm F: 2.7 - 3.3 LA Vol/ BSA Biplane s A-L 28.4 mL/m2 RA Area A4C 8.68 cm2 LA Area A4C s MOD 13.63 cm2 RA Vol/ BSA A4C s A-L 8.3 mL/m2 LA Area A2C s MOD 19.94 cm2 Ao Asc Diam d 4.12 cm F: 2.3 - 3.1 LV EF A4C MOD 57.1 % LV EF Teichholz 60.5 % LV EF A2C MOD 59.6 % LVEF (Tanner's) 57.57 % F: 54 - 74 LV EF Biplane MOD 57.6 % LV Volume 119.86 mL F: 46 - 106 SV 87.35 mL LV Volume Index 69.68 mL/m2 F: 29 - 61 SV Index 50.65 mL/m2 LV Vol Biplane MOD 151.7 mL FS 32.15 % M-Mode TAPSE 2.66 cm (M/F) >1.7 LV Diastology MV E' medial 0.075 (>0.07 m/s) E/A Ratio 0.7 LV E/e MED 10.50 (<14) MV E Vmax 0.79 (0.4-1.3 m/s) MV E' lateral 0.087 (>0.1 m/s) MV A Vmax 1.10 (0.4-1.3 m/s) LV E/e LAT 9.00 (<14) MV E/A Ratio 0.71 MV E/E' medial 10.53 MV E/E' lateral 9.05 Aortic Valve LVOT Area 3.52 cm2 AoV Area Vmax 1.64 cm2 LVOT Vmax 1.25 m/s AoV Area/ BSA (Vmax) 0.95 cm2/m2 LVOT Mean Morgan. 0.83 m/s STEVEN Mean Morgan. 1.59 cm2 LVOT Peak Grad 6.2 mmHg STEVEN Mean Morgan. Index 0.92 cm2/m2 LVOT Mean Grad 3.2 mmHg AR DT 1336 msec LVOT VTI 0.290 m AR PHT 387 msec LVOT Diam s 2.10 cm AoV Vmax 2.69 m/s Velocity Ratio 0.46 AoV Mean Morgan. 1.84 m/s AoV Peak Grad 28.9 mmHg LVOT SV 102.14 mL AoV Mean Grad 15.3 mmHg AoV VTI 0.573 m AoV Area VTI 1.78 cm2 AoV Area/ BSA (VTI) 1.03 cm/m2 Mitral Valve MV DT 361 (160-240 msec) MR Vmax 5.87 m/s MV PHT 105 msec MR VTI 2.030 m MV Area PHT 2.10 cm2 MR Peak Grad 137.7 mmHg MV VTI 0.528 m MR Mean Grad 90.5 mmHg MV VTI Annulus 0.533 m MR PISA Radius 0.70 cm MV Area VTI 1.95 (4.0-6.0 cm2) MR EROA 0.18 cm2 MR Aliasing Velocity 0.35 m/s MR PISA 3.05 cm2 Pulmonary Valve PV Vmax 1.06 (0.5-1.5 m/s) RVOT Peak Gr. 2.11 mmHg PV Peak Grad 4.5 mmHg RVOT Mean Gr. 1.20 mmHg PV Mean Grad 2.4 mmHg RVOT VTI 0.173 m PV VTI 0.226 m RVOT Vmax 0.73 m/s Tricuspid Valve TR Peak Grad 17.5 mmHg TR Vmax 2.10 m/s RA Pressure 3.00 mmHg RVSP (TR) 20.6 mmHg
== END 2020-12-15 03:26 ==
DX: I35.2 Nonrheumatic aortic (valve) stenosis with insufficiency (principal); I10 Essential (primary) hypertension; Z01.810 Encounter for preprocedural cardiovascular examination; I77.810 Thoracic aortic ectasia
CPT/HCPCS: 93306

== ENCOUNTER 2021-02-12 01:34 | Outpatient (CLI) | payer OTHER, MEDICARE, SELFPAY ==
[2021-02-12 11:22] LABS: Source Nasal/Nares
[2021-02-12 15:19] LABS: COVID-19 PCR Negative (Negative)
== END 2021-02-12 01:35 | disposition home or self-care (01) ==
LOC: LBO 01:34
PROVIDERS: Surgery; Visit Provider Surgery
DX: Z20.822 Contact with and (suspected) exposure to COVID-19 (principal); Z01.818 Encounter for other preprocedural examination
CPT/HCPCS: 87635

== ENCOUNTER 2021-02-13 08:33 | Day surgery (SDC) | payer OTHER, MEDICARE, SELFPAY ==
--- NOTE | 2021-02-12 22:31 | W.COLOREPORT ---
Colonoscopy Report Date of procedure: 02/13/21 Pre-op diagnosis general: CTC screening Post-op diagnosis procedure note: other (diverticula/small polyp) Surgeon: Deedee Kahn Anesthesia Type: General:No Airway Estimated blood loss (mL): 1 Pathology: other Complications: None Disposition: same day Prep: Miralax/Dulcolax Retraction Time: 11 Procedure Description: After informed consent was obtained the patient was taken to the procedure room and placed in a left decubitous position. Monitors were applied and a time out was done. The patients name, date of , procedure, allergies to medications and metal in their body was reviewed. The patient was then sedated. Once sedated and comfortable a rectal exam was done- External Hemorrhoidal tags . Internal exam revealed a normal sphincter tone and no palpable masses. The scope was then introduced and retrofelexed. no internal hemorrhoids were identified. The scope was then advanced to the cecum w/out difficulty. The TI and appendiceal orifice were identified. The prep was good. The scope was then slowly retracted over 11 minutes back into the rectum. She Had a 5 mm flat polyp at 60 cm. This is removed with cold forcep. All specimens are retrieved and no bleeding is noted. She does have diverticulit to the transverse colon. She has moderate disease. There is no signs of bleeding or infection. The scope was removed and the patient was woken up and taken back to Same day surgery in stable condition. The patient tolerated the procedure well and there were no immediate complications. Follow up: The patient should follow up in 5-7 years unless they develop changes in bowel habits or other new gastrointestinal complaints.
--- NOTE | 2021-02-12 22:33 | PDOC.DSDIS_ITS ---
Discharge Plan Disposition Patient Disposition: HOME Condition: Good Discharge Details Reason For Visit: colon scope Attending Provider: Deedee Kahn Primary Care Provider: Veronika Vera Home Meds and New Rx's Prescriptions: No Action cholecalciferol (vitamin D3) 25 mcg (1,000 unit) capsule 25 mcg PO DAILY RF: 0 lisinopril 20 mg tablet 20 mg PO DAILY Qty: 90 RF: 3 acetaminophen 500 mg Tablet 500 mg PO PRN PRNRF: 0 ibuprofen [IBU] 400 mg Tablet 400 mg PO PRN PRNRF: 0 ascorbic acid (vitamin C) [Vitamin C] 500 mg Tablet 1,000 mg PO DAILY RF: 0 Discharge Instructions Additional Instructions: DSU Colonoscopy Post- Op Instructions Instructions for Everyone who is given Anesthesia: For your safety, please do the following for the next twenty-four (24) hours: *Do Not operate a motor vehicle (car, truck, motorcycle, etc.) *Do Not drink alcoholic beverages or use any recreational drugs for the first 24 hours or while taking pain medications. The medications in your body may have a reaction that can be dangerous. *Do Not make any important decisions or sign any important papers. Findings: small polyp diverticula Follow up: My office will send a letter in approximately 3 weeks time, detailing what type of polyp it was, and when we want you to repeat your colonoscopy. Make sure you are following a high-fiber diet and and moving your bowels regularly and not straining to move your bowels. 1. No lifting over 20 pounds or strenuous activity for the first 24 hours after your procedure. After 24 hours there are no restrictions on your activity but you may feel fatigued for a few days. 2. After you arrive home you may have a light meal and return to your normal diet as you can tolerate it without feeling sick to your stomach. 3. You may have a bloated, gaseous feeling in your belly (abdomen) after a colonoscopy. Passing gas and belching will help. Walking or lying down on your left side with your knees flexed may relieve the discomfort. Call the office at [phone] (Office) or [phone] (Hospital) right away if you notice any of the following: a.Vomiting of blood or ?coffee ground stools?. b.Rectal bleeding 1Tbsp, blood clots or continuous bleeding. c.Severe belly (abdominal) pain. d.A hard distended belly (abdomen) and an inability to pass gas. 4. Please don?t expect to have a normal BM (bowel movement) for 2-3 days after your procedure. 5. If there are questions regarding the findings of your procedure, please contact your doctor 6. If you are unable to contact your doctor with a problem, contact the hospital at [phone]. 7. Continue all your regular medications unless directed otherwise. I understand the above instructions and have no questions. Signature of Patient or Adult Escort Name of Responsible Adult Escort Signature of Nurse Date/Time Activity:: see above Diet:: see above Discharge Orders Discharge Orders: Discharge Order (Routine); Ordered 02/12/21 Ordered By: Deedee Kahn DS: Diagnosis Discharge Diagnosis (1) Adenomatous polyps: Status: Acute (2) Diverticulosis: Status: Chronic
[2021-02-13 09:15] VITALS: BP 149/52; PULSE 64; RESP 16; TEMP 36.2; O2SAT 98
[2021-02-13] MEDS: Lactated Ringers 1,000 ML 80 ML IV (09:36)
--- NOTE | 2021-02-13 09:41 | ANES.PREOP_ITS ---
General Info Date of Service Date Performed: 02/13/21 Height: 5 ft 3 in Weight: 73.9 kg Body Mass Index (BMI): 28.8 Surgical Procedure: Operation Date: 02/13/21 09:50 Proposed Procedures Side Surgeon kecia Kahn, DO Meds Allergies and Home Medications Allergies Allergy/AdvReac Type Severity Reaction Status Date / Time omeprazole AdvReac Intermediate nausea Verified 02/13/21 09:23 Home Medication Medication Instructions Recorded acetaminophen 500 mg PO PRN PRN 05/18/19 ibuprofen [IBU] 400 mg PO PRN PRN 05/18/19 cholecalciferol (vitamin D3) 25 25 mcg PO DAILY 11/17/20 mcg (1,000 unit) capsule lisinopril 20 mg tablet 20 mg PO DAILY #90 tab 12/21/20 ascorbic acid (vitamin C) [Vitamin 1,000 mg PO DAILY 02/12/21 C] Current Visit Medications: Current Medications Generic Name Dose Route Start Last Admin Trade Name Freq PRN Reason Stop Dose Admin Ringer's Solution 1,000 mls @ 80 mls/hr 02/13/21 06:00 02/13/21 09:36 IV 03/14/21 23:59 80 mls/hr INFUSION KAREN Administration IV Miscellaneous Supplies 1 each 02/13/21 06:00 Iv Access IV 03/14/21 23:59 DIRECTED KAREN Sodium Chloride 0 ml 02/13/21 06:00 Normal Saline Flush 10 Ml Syr IV 03/14/21 23:59 PRN PRN Sodium Chloride 0 ml 02/13/21 06:00 Normal Saline 10 Ml Vial IJ 03/14/21 23:59 DIRECTED PRN Sterile Water 0 ml 02/13/21 06:00 Water,Injection,Sterile 10 Ml Vial IJ 03/14/21 23:59 DIRECTED PRN PFSH Active Problems Active Problems: Problem Status Onset Code Hypertension I10 Encounter for annual physical exam Z00.00 Nasal congestion R09.81 Constipation K59.00 H/O bilateral salpingo-oophorectomy Z90.79, Z90.722 H/O vaginal hysterectomy Z90.710 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 Status post cholecystectomy Z90.49 History of bilateral ligation of fallopian tubes Z98.51 Anxiety F41.9 Increased body mass index (BMI) R63.8 Uterine prolapse 02/14/14 N81.4 Urinary incontinence 01/05/13 R32 Sensorineural hearing loss, bilateral 07/27/13 H90.3 Postnasal drip 03/27/15 R09.82 Globus sensation 03/27/15 F45.8 Gastroesophageal reflux disease without esophagitis 03/27/15 K21.9 Fatty liver 01/08/13 K76.0 Eczema 09/23/14 L30.9 Diverticulosis K57.90 Diabetes mellitus 01/01/13 E11.9 Belching 05/08/15 R14.2 Aortic valve regurgitation 01/05/13 I35.1 Abnormal auditory perception 07/27/13 H93.299 Medical History Medical History Abnormal auditory perception (07/27/13) Anxiety Aortic valve regurgitation (01/05/13) ECHO 01/15 NO CHANGE FROM 2010, MODERATE AR, EF NORMAL H/O rheumatic heart disease; echo Last Done 02/2018 - Only change from 2012 was some aortic stenosis ASCUS with positive high risk HPV (02/23/14) colp, bx, ECC resolving hpv per Dr Ramirez repeat pap 6 mos, repeat pap and hpv 1 yr Belching (05/08/15) Cellulitis Constipation Diabetes mellitus (01/01/13) diet controlled Diverticulosis sigmoid Eczema (09/23/14) Encounter for annual physical exam Fatty liver (01/08/13) Gastroesophageal reflux disease without esophagitis (03/27/15) Globus sensation (03/27/15) Increased body mass index (BMI) Nasal congestion Postnasal drip (03/27/15) Pre-op exam Rheumatic fever Sensorineural hearing loss, bilateral (07/27/13) Urinary incontinence (01/05/13) Uterine prolapse (02/14/14) 05/19/2019 stage 3. Pessary fitting unsuccessful. Rx with TVH and BSO Surgical History Surgical History Cholecystectomy Colonoscopy - MAC (05/03/11) DR. BENITEZ SERRATO; SIGMOID DIVERTICULA H/O bilateral salpingo-oophorectomy 05/19/2019 at time of vaginal hysterectomy for uterine prolapse H/O vaginal hysterectomy 05/19/2019 uterine prolapse Ligation of fallopian tube (~1981) Tobacco Smoking/Tobacco Use Status: Never Passive smoking exposure: No Second hand exposure: Yes Alcohol Alcohol Intake: former Substance Use Substance use: Never Substance use type: does not use Counseling given: No Counseling provided: none Prental History History 3 Para 3 Hx # Term Pregnancies 3 Multiple births Hx # Pregnancies Ectopic pregnancies AB induced Hx Number of Living Children 3 AB spontaneous Vital Signs and Lab Results Vital Signs Most Recent Vital Signs in EMR: Most Recent Vital Signs Temp Pulse Resp BP Pulse Ox 36.2 C L 64 16 149/52 H 98 02/13/21 09:15 02/13/21 09:15 02/13/21 09:15 02/13/21 09:15 02/13/21 09:15 Lab Results Blood Type / Crossmatch: No Data to Display Complete Blood Count: No Data to Display Complete Metabolic Panel: No Data to Display Liver Function Panel: No Data to Display Coagulation Panel: No Data to Display Cardiac Panel: No Data to Display Arterial Blood Gas: No Data to Display Venous Blood Gas: No Data to Display Pancreas Panel: No Data to Display Thyroid Panel: No Data to Display Infectious Disease: 2 Coronavirus (COVID-19)(PCR) Negative (Negative) 02/12/21 09:14 02/12/21 Coronavirus 2019 Source Nasal/Nares 02/12/21 09:14 02/12/21 Blood Cultures: No Data to Display Toxicology Panel: No Data to Display Imaging and Studies Imaging and Studies Echocardiogram Summary: 12/15/2020: Conclusion Normal left ventricular chamber size and systolic function. Estimated ejection fraction is approximately 60%. Wall motion is normal Normal right ventricular size and systolic function Both atria are normal in size The aortic valve is trileaflet and sclerotic. There is mild aortic stenosis, moderate mitral regurgitation Mild mitral annular calcification, mild mitral regurgitation Dilated ascending aorta measuring 4.12 cm Anesthesia Assessment and Plan Anesthesia History Personal History: No History of Anesthesia Complications Family History: No Family History of Anesthesia Complications Exercise Tolerance Exercise Tolerance: Metabolic Equivalents>4 Cardiac & Pulmonary Exam Cardiac Exam: Normal S1/S2 Heart Sounds and Heart Murmur Present Pulmonary Exam: Clear Bilateral Breath Sounds Airway Exam Known Difficult Airway: No Mallampati Class: 2 Mouth Opening: Normal (> 3cm) Thyromental Distance: Greater than 3 cm Neck Range of Motion: Full ROM Neck Circumference: Normal Teeth Condition: Normal Dentition ASA Classification ASA Score: ASA 3 Emergency Case?: No NPO Status NPO Status: NPO Clears >2 hours, Solids >8 hours Anesthesia Plan Resuscitation Status: Full Code Anesthesia Technique: General Anesthesia Airway Planned: Natural Airway Monitors Used: Standard Monitors
[2021-02-13 09:43] VITALS: BMI 28.8
--- NOTE | 2021-02-13 11:00 | BOWEL_PTH ---
PATIENT: Mandi Vizcaino LOC: [facility] U#:[id number] AGE/SX: 65/F ROOM: RE02/13/[address]: Deedee Kahn : 1955 BED: DIS: 02/13/2021 SPEC #: [id number] RECD: 02/13/21 12:52 STATUS: ELPIDIO REQ #: [id number] LEXI: 02/13/21 11:[address]: Deedee Kahn DEPT: Surgical Specimen RECD BY: Barb Joseph ENTERED: 02/13/21 12:53 SP TYPE: Bowel OTHR DR: Veronika Vera APRN Tissues: 1 - BIOPSY BOWEL Procedures: GROSS AND MICRO LEVEL 4 Comments: [id number]
[2021-02-13 11:15] VITALS: BP 128/50; PULSE 59; RESP 16; TEMP 36; O2SAT 98
--- NOTE | 2021-02-13 11:18 | W.ANESPOSTOP ---
Postoperative Evaluation Date, Time and Location Date Performed: 02/13/21 Time Performed: 11:18 Patient Location: Day Surgery Unit Vital Signs Most Recent Imported Vital Signs: Most Recent Vital Signs Temp Pulse Resp BP Pulse Ox 36.2 C L 64 16 149/52 H 98 02/13/21 09:15 02/13/21 09:15 02/13/21 09:15 02/13/21 09:15 02/13/21 09:15 Pain Score Most Recent Pain Score: Most Recent Pain Score Pain Level 0 02/13/21 09:15 Assessment Mental Status: Awake (Alert & Oriented to Patient Baseline) Airway and Respiratory Function: Patent airway with normal (patient baseline) respiratory exam Cardiovascular Function: Hemodynamically Stable Hydration Status: Adequately Hydrated Nausea & Vomiting: No Nausea or Vomiting Pain: Pt. Denies Any Pain Peripheral Nerve Block: Patient did not receive a nerve block
[2021-02-13 11:45] VITALS: BP 147/47; PULSE 58; RESP 16; TEMP 36.4; O2SAT 100
== END 2021-02-13 12:03 | disposition home or self-care (01) ==
PROVIDERS: Visit Provider Surgery
PROC: 0DJD8ZZ Inspection of Lower Intestinal Tract, Via Natural or Artificial Opening Endoscopic (ICD-10-PCS; CPT 45378; principal; 2021-02-13 09:45)
DX: Z12.11 Encounter for screening for malignant neoplasm of colon (principal); K57.30 Diverticulosis of large intestine without perforation or abscess without bleeding; D12.4 Benign neoplasm of descending colon
CPT/HCPCS: 45380; 88305; J2001

== ENCOUNTER 2021-10-16 02:33 | Outpatient (CLI) | payer OTHER, SELFPAY ==
[2021-10-16 10:13] LABS: Hemoglobin A1C 5.6 % (<5.7)
[2021-10-16 10:14] LABS: ALT 26 U/L (14-59); Albumin 3.8 g/dL (3.4-5.0); Alkaline Phosphatase 94 U/L (46-116); BUN 19 mg/dL (7-18); Bilirubin, Total 1.2 mg/dL (0.2-1.0); CREATININE 0.7 mg/dL (0.55-1.02); Chloride 107 mmol/L (98-107); Glucose 98 mg/dL (74-106); Potassium 4.3 mmol/L (3.5-5.1); Sodium 142 mmol/L (136-145); Total Protein 7.1 g/dL (6.4-8.2)
[2021-10-16 10:28] LABS: AST 17 U/L (15-37)
== END 2021-10-16 02:34 | disposition home or self-care (01) ==
LOC: LBO 02:33
DX: Z00.00 Encounter for general adult medical examination without abnormal findings (principal); E11.9 Type 2 diabetes mellitus without complications
CPT/HCPCS: 36415; 80053; 83036

== ENCOUNTER → 2021-10-30 01:38 | Outpatient (CLI) | payer OTHER, SELFPAY ==
--- NOTE | 2021-10-30 07:00 | DI.MAMMO_ITS ---
Exam(s) MAMMO SCREENING EXAM: MAMMO SCREENING CLINICAL HISTORY: screening,Z12.39 TECHNIQUE: Bilateral full field digital CC and MLO mammographic images were obtained with 3D tomosyn thesis and utilizing computer aided detection (CAD). COMPARISON: Available for comparison. FINDINGS: Masses/Architectural Distortion: None seen. Microcalcifications: No suspicious pleomorphic-type are seen. Skin Thickening/Nipple Retraction: None. IMPRESSION: 1. No significant interval change with no specific features of malignancy noted. 2. Unless there is more urgent need, screening mammography is recommended, as per [place] [employer] guidelines. BI-RADS Category 1 - Negative Breast Density - Category B - Scattered areas of fibroglandular density Breast density category C or D implies that the patient has dense breast tissue. Dense breast tissue is very common and is not abnormal but dense breast tissue can make it harder to find cancer on a ma mmogram. Also, dense breast tissue may increase their breast cancer risk. This information about the result of the mammogram report was provided to the patient to raise their awareness. Use this report when you speak with the patient about their risks for breast cancer, which includes their family hist ory. At that time, you may recommend for more screening tests (Ultrasound or MRI) as they might be us eful based on their risk. A negative radiographic report should not delay biopsy if a dominant or clinically suspicious mass is present. Up to ten percent of cancers are not identified on mammography. A negative report may reinforce clinical impression. Adenosis and dense breasts may obscure an underlying neoplasm. False positive reports average 6 to 10%. Patient will receive a letter notifying them of these results.
== END ==
DX: Z12.31 Encounter for screening mammogram for malignant neoplasm of breast (principal)
CPT/HCPCS: 77063; 77067

== ENCOUNTER → 2022-12-26 01:38 | Outpatient (CLI) | payer OTHER, SELFPAY ==
--- NOTE | 2022-12-26 06:45 | DI.US_ITS ---
APPROVED REPORT EXAM: Comprehensive 2D, Doppler, and color-flow Echocardiogram Patient Location: Out-Patient Patch Worker: Anthony Zambrano RDCS Other Information Study Quality: Adequate Conclusion Normal left ventricular wall thickness and chamber size. Action fraction is 60 to 65% Wall motion is normal Normal right ventricular size and systolic function Both atria are normal in size Aortic valve is sclerotic and trileaflet with moderate stenosis. There is moderate aortic regurgitat ion Peak aortic valve gradient is 36, mean is 21 mmHg. Calculated aortic valve area is 1 cm?? Moderate mitral regurgitation Dilated aortic root and ascending aorta Wall motion Left Ventricle The left ventricle is normal size. The left ventricular systolic function is normal. The left ventric ular ejection fraction is within the normal range. There is normal left ventricular wall thickness. T here is normal LV segmental wall motion. There is no ventricular septal defect visualized. LVEF is 60 -65%. Right Ventricle The right ventricle is normal size. The right ventricular systolic function is normal. The RVSP is 23 .6mmHg. Atria The left atrium size is normal. The right atrium size is normal. The interatrial septum is intact wit h no evidence for an atrial septal defect. Aortic Valve Aortic valve is calcified. Aortic valve is trileaflet. Moderate aortic stenosis. Highest mean aortic valve gradient is 20.88 mmHg. Peak aortic valve gradient is 36.03 mmHg. Calculated STEVEN by the continu ity equation is 1.0 cm2. moderate aortic regurgitation. Mitral Valve The mitral valve is normal in structure. No evidence of mitral valve stenosis. Moderate mitral regurg itation. Tricuspid Valve The tricuspid valve is normal in structure. There is no tricuspid valve stenosis. Mild tricuspid regu rgitation. Pulmonic Valve The pulmonary valve is normal in structure. There is no pulmonic valvular stenosis. There is no pulmo rosaura valvular regurgitation. Great Vessels Aortic root is mildly dilated. The ascending aorta is moderately dilated. IVC is normal in size and collapses >50% with inspiration. Pericardium There is no pericardial effusion. 2D Dimensions IVSD d PLAX 0.95 cm F: 0.6-1.0 LVPW d PLAX 0.98 cm F: 0.6 - 1.0 LVID d PLAX 3.82 cm F: 3.8 - 5.2 LVDs 2.45 cm F: 2.2 - 3.5 Ao Root d 3.85 cm F: 2.7 - 3.3 RA Area A4C 7.89 cm2 Ao Asc Diam d 4.22 cm F: 2.3 - 3.1 LV EF Todd[place]holly 65.1 % FS 35.00 % M-Mode TAPSE 2.25 cm (M/F) >1.7 LV Diastology MV E' medial 0.075 (>0.07 m/s) E/A Ratio 0.9 LV E/e MED 15.48 (<14) MV E Vmax 1.16 (0.4-1.3 m/s) MV E' lateral 0.075 (>0.1 m/s) MV A Vmax 1.25 (0.4-1.3 m/s) LV E/e LAT 15.61 (<14) MV E/E' medial 15.48 MV E/E' lateral 15.61 MV (E/E' average) 15.54 Aortic Valve LVOT Vmax 1.00 m/s AoV Area Vmax 1.29 cm2 LVOT Peak Grad 4.0 mmHg AR Vmax 4.52 m/s LVOT Mean Grad 2.0 mmHg AR DT 1617 msec LVOT Diam s 2.20 cm AR PHT 469 msec AoV Vmax 3.00 m/s AV Regurg Peak Gr. 81.90 mmHg Velocity Ratio 0.33 AoV Peak Grad 81.9 mmHg LVOT SV 89.59 mL AoV Mean Grad 20.9 mmHg AoV Area VTI 1.03 cm2 Mitral Valve MV DT 297 (160-240 msec) Pulmonary Valve PV Mean Grad 1.5 mmHg RVOT Peak Gr. 2.24 mmHg RVOT Mean Gr. 1.15 mmHg RVOT VTI 0.169 m RVOT Vmax 0.75 m/s Tricuspid Valve TR Peak Grad 20.6 mmHg TR Vmax 2.27 m/s RA Pressure 3.00 mmHg RVSP (TR) 23.6 mmHg
== END ==
PROVIDERS: PCP Family Medicine; Visit Provider Family Medicine
DX: I06.1 Rheumatic aortic insufficiency (principal); R01.1 Cardiac murmur, unspecified; R53.83 Other fatigue
CPT/HCPCS: 93306

== ENCOUNTER 2022-12-26 04:03 | Outpatient (CLI) | payer OTHER, SELFPAY ==
[2022-12-26 08:54] LABS: Abs Immature Grans 0.01 10^3/uL (0.0-0.06); Absolute Basophil Count 0.08 10^3/uL (0.0-0.2); Absolute Eosinophil Count 0.22 10^3/uL (0.0-0.7); Absolute Lymphocyte Count 1.75 10^3/uL (1.2-3.4); Absolute Monocyte Count 0.51 10^3/uL (0.1-0.8); Absolute Neutrophil Count 4.03 10^3/uL (1.2-6.7); Basophils % 1.2; Eosinophils % 3.3; HCT 44.5 % (36.0-46.0); HGB 14.6 g/dL (11.2-15.7); Immature Grans % 0.2; Lymphocytes % 26.5; MCHC 32.8 % (32.0-36.0); MCV 85 fL (80-95); MPV 9.8 fL (8.0-11.0); Monocytes % 7.7; Neutrophils % 61.1; Platelet Count 332 10^3/uL (130-400); RBC 5.22 10^6/uL (3.93-5.22); RDW 12.5 % (11.7-14.6); RDW-SD 38.7 fL
[2022-12-26 09:33] LABS: ALT 23 U/L (14-59); AST 20 U/L (15-37); Albumin 3.7 g/dL (3.4-5.0); Alkaline Phosphatase 108 U/L (46-116); Anion Gap 3.7 mmol/L (3-11); BUN 16 mg/dL (7-18); Bilirubin, Total 0.8 mg/dL (0.2-1.0); CO2 29.3 mmol/L (21.0-32.0); CREATININE 0.8 mg/dL (0.55-1.02); Calcium 9.7 mg/dL (8.5-10.1); Chloride 108 mmol/L (98-107); Estimated GFR 79.71 (mL/min/1.73m2); Glucose 113 mg/dL (74-106); Potassium 4.9 mmol/L (3.5-5.1); Sodium 141 mmol/L (136-145); TSH (W/Ref FT4) 1.26 uIU/mL (0.36-3.74); Total Protein 7.3 g/dL (6.4-8.2)
== END 2022-12-26 04:04 | disposition home or self-care (01) ==
LOC: LBO 04:04
PROVIDERS: PCP Family Medicine; Visit Provider Family Medicine
DX: I10 Essential (primary) hypertension (principal); R53.83 Other fatigue
CPT/HCPCS: 36415; 80053; 84443; 85025

== ENCOUNTER 2023-01-03 11:42 | Outpatient (CLI) | payer OTHER, SELFPAY ==
--- NOTE | 2023-01-03 11:30 | RT.EKG_ITS ---
APPROVED REPORT Exam: Resting ECG Reason for Exam: cardiac evaluation Patient Location: O HR:65 bpm ECG Measurements Heart Rate 65 AXIS NH 181 P 51 QRSd 100 QRS 47 QT 421 T 88 QTc 438 Conclusion Sinus rhythm...normal P axis, V-rate 50- 99 LVH with secondary repol abnrm...multiple LVH criteria Nondiagnostic inferior Q waves
== END 2023-01-03 11:43 | disposition home or self-care (01) ==
LOC: DI.CARD 11:43
PROVIDERS: PCP Family Medicine; Visit Provider Internal Medicine Cardiovascular Disease
DX: I35.1 Nonrheumatic aortic (valve) insufficiency (principal)
CPT/HCPCS: 93010

== ENCOUNTER → 2023-05-22 02:11 | Outpatient (CLI) | payer OTHER, SELFPAY ==
--- NOTE | 2023-05-22 13:16 | DI.RAD_ITS ---
Exam(s) XR LUMBAR SPINE COMPLETE EXAM: XR LUMBAR SPINE COMPLETE CLINICAL HISTORY: low back pain,m54.50. TECHNIQUE: 2D digital imaging was performed. Five views. COMPARISON: No exams were available for comparison FINDINGS: BONES: No fracture or destructive lesion. Vertebral body heights are maintained. Endplate osteophyte s. Mild moderate facet hypertrophy identified L3-4 through early L5-S1.. DISKS: mild to moderate narrowing of the L4-5 and L5-S1 disc spaces. ALIGNMENT: Lumbar spinal alignment is within normal limits. SOFT TISSUE: Aorta heavily calcified and normal in diameter. Right upper quadrant surgical clips. IMPRESSION: Degenerative changes greatest at L4-5 and L5-S1. DATA REPOSITORY: RADIATION DOSE DELIVERED:
== END ==
PROVIDERS: PCP Family Medicine; Visit Provider Nurse Practitioner Family
DX: M51.36 Other intervertebral disc degeneration, lumbar region (principal)
CPT/HCPCS: 72110

== ENCOUNTER → 2023-07-29 01:32 | Outpatient (CLI) | payer OTHER, SELFPAY ==
--- NOTE | 2023-07-29 12:34 | DI.MAMMO_ITS ---
Exam(s) MAMMO SCREENING EXAM: MAMMO SCREENING CLINICAL HISTORY: screening,z12.39 TECHNIQUE: Bilateral full field digital CC and MLO mammographic images were obtained with 3D tomosyn thesis and utilizing computer aided detection (CAD). COMPARISON: Available for comparison. FINDINGS: Masses/Architectural Distortion: None seen. Microcalcifications: No suspicious pleomorphic-type are seen. Skin Thickening/Nipple Retraction: None. IMPRESSION: 1. No significant interval change with no specific features of malignancy noted. 2. Unless there is more urgent need, screening mammography is recommended, as per [place] [employer] guidelines. BI-RADS Category 1 - Negative Breast Density - Category B - Scattered areas of fibroglandular density Breast density category C or D implies that the patient has dense breast tissue. Dense breast tissue is very common and is not abnormal but dense breast tissue can make it harder to find cancer on a ma mmogram. Also, dense breast tissue may increase their breast cancer risk. This information about the result of the mammogram report was provided to the patient to raise their awareness. Use this report when you speak with the patient about their risks for breast cancer, which includes their family hist ory. At that time, you may recommend for more screening tests (Ultrasound or MRI) as they might be us eful based on their risk. A negative radiographic report should not delay biopsy if a dominant or clinically suspicious mass is present. Up to ten percent of cancers are not identified on mammography. A negative report may reinforce clinical impression. Adenosis and dense breasts may obscure an underlying neoplasm. False positive reports average 6 to 10%. Patient will receive a letter notifying them of these results.
== END ==
PROVIDERS: PCP Family Medicine; Visit Provider Nurse Practitioner Family
DX: Z12.31 Encounter for screening mammogram for malignant neoplasm of breast (principal)
CPT/HCPCS: 77063; 77067

== ENCOUNTER 2023-08-15 01:04 | Outpatient (CLI) | payer OTHER, SELFPAY ==
[2023-08-15 12:30] LABS: Anion Gap 7.2 mmol/L (3-11); BUN 17 mg/dL (7-18); CO2 29.8 mmol/L (21.0-32.0); CREATININE 0.7 mg/dL (0.55-1.02); Calcium 9.1 mg/dL (8.5-10.1); Chloride 106 mmol/L (98-107); Estimated GFR 93.56 (mL/min/1.73m2); Glucose 107 mg/dL (74-106); Potassium 4.3 mmol/L (3.5-5.1); Sodium 143 mmol/L (136-145)
== END 2023-08-15 01:05 | disposition home or self-care (01) ==
LOC: LOS 01:05
PROVIDERS: PCP Family Medicine; Visit Provider Family Medicine
DX: I10 Essential (primary) hypertension (principal)
CPT/HCPCS: 36415; 80048

== ENCOUNTER 2023-09-08 11:53 | Emergency (ER) | payer OTHER, SELFPAY ==
[2023-09-08] VITALS (9 sets, daily range): BP systolic 132–209; BP diastolic 39–55; PULSE 53–69; RESP 11–19; TEMP 36.6–36.7; O2SAT 98–99
--- NOTE | 2023-09-08 11:45 | RT.EKG_ITS ---
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
--- NOTE | 2023-09-08 12:30 | DI.CT_ITS ---
Exam(s) CT BRAIN NECK CTA EXAM: CT BRAIN NECK CTA CLINICAL HISTORY: dizziness, ataxia. TECHNIQUE: Imaging Protocol: Axial CT angiography was performed with multi-slice acquisition and mu lti-planar and MIP reconstructions. CONTRAST MATERIAL: Intravenous: Omnipaque 350 Contrast volume:100 ml COMPARISON: No exams were available for comparison FINDINGS: CT Head W/O and W contrast: Ventricles and Extra axial spaces: Normal in size and morphology for the patient's age. Hemorrhage: None. Cerebral parenchyma: No evidence of acute infarct or mass. Midline shift: None. Brainstem/Cerebellum: No acute findings.. Calvarium: Normal. Visualized Paranasal sinuses/Mastoids: Clear. Soft Tissues: Unremarkable. Enhancement: Normal. CTA Brain W: Internal Carotid Arteries: Petrous: Normal. Cavernous: Normal. Cerebral: Normal. Middle Cerebral Arteries: Right: No aneurysm, occlusion or significant stenosis. Left: No aneurysm, occlusion or significant stenosis. Anterior Cerebral Arteries: Right: No aneurysm, occlusion or significant stenosis. Left: No aneurysm, occlusion or significant stenosis. Posterior cerebral Arteries: Right: No aneurysm, occlusion or significant stenosis. Left: No aneurysm, occlusion or significant stenosis. Vertebral Arteries: Right: No aneurysm, occlusion or significant stenosis. Left: No aneurysm, occlusion or significant stenosis. Basilar Artery: No aneurysm, occlusion or significant stenosis. CTA Neck W: Common Carotid: Right: No dissection, occlusion or significant stenosis. Left: No dissection, occlusion or significant stenosis. External Carotid: Right: No dissection, occlusion or significant stenosis. Left: No dissection, occlusion or significant stenosis. Internal Carotid: Right: Heavily calcified plaque proximally spanning approximately 2 cm in length. Less than 50 perce nt stenosis. No dissection, occlusion or significant stenosis. Left: Heavily calcified proximally extending approximately 2 cm in length. Less than 50 percent sten osis. No dissection, occlusion or significant stenosis. Vertebral Artery: Right: No dissection, occlusion or significant stenosis. Left: No dissection, occlusion or significant stenosis. Lung Apices: Normal. Bones: No acute abnormality. Soft Tissues: Normal. IMPRESSION: 1. CTA brain: Normal CTA examination of the [place]. 2. Head CT: Unremarkable CT Head. 3. CTA neck: Heavily calcified plaque at the proximal internal carotid arteries bilaterally causing s tenosis of less than 50 percent. RADIATION DOSE DELIVERED: Total DLP DATA REPOSITORY: All CT scans at this facility are submitted to the National Radiology Data Registry (NRDR) Dose Index Registry (DIR) with the [employer] (ACR). RADIATION OPTIMIZATION: All CT scans at this facility use at least one of these dose optimization te chniques: automated exposure control; mA and/or kV adjustment per patient size (includes targeted exa ms where dose is matched to clinical indication); or iterative reconstruction.
[2023-09-08] MEDS: Meclizine 25 MG TAB PO (12:43)
[2023-09-08 12:44] LABS: Abs Immature Grans 0.01 10^3/uL (0.0-0.06); Absolute Basophil Count 0.06 10^3/uL (0.0-0.2); Absolute Eosinophil Count 0.27 10^3/uL (0.0-0.7); Absolute Lymphocyte Count 1.74 10^3/uL (1.2-3.4); Absolute Monocyte Count 0.58 10^3/uL (0.1-0.8); Absolute Neutrophil Count 4.79 10^3/uL (1.2-6.7); Basophils % 0.8 %; Eosinophils % 3.6 %; HCT 42.8 % (36.0-46.0); HGB 14.3 g/dL (11.2-15.7); Immature Grans % 0.1 %; Lymphocytes % 23.4 %; MCH 28.1 pg (27.0-33.0); MCHC 33.4 % (32.0-36.0); MCV 84 fL (80-95); MPV 10.1 fL (8.0-11.0); Monocytes % 7.8 %; Neutrophils % 64.3 %; Platelet Count 328 10^3/uL (130-400); RBC 5.09 10^6/uL (3.93-5.22); RDW-SD 39.8 fL; WBC 7.45 10^3/uL (4.4-10.8)
[2023-09-08] MEDS: ACETAMINOPHEN 1,000 MG/100 ML BTL 400 MG IVPB (12:44)
[2023-09-08] MEDS: Normal Saline 1,000 ML 1000 ML IV (12:45)
--- NOTE | 2023-09-08 12:47 | W.ED.GENAD ---
Discharge Plan Disposition Patient Disposition: Home Condition: Improving Discharge Details Clinical Impression: Vertigo Primary Care Provider: Brianna Noriega ED Provider: Jose Briones Home Meds and New Rx's Prescriptions: New meclizine 25 mg tablet 25 mg PO BID PRN (Reason: dizziness) Qty: 7 0RF No Action cholecalciferol (vitamin D3) 25 mcg (1,000 unit) capsule 25 mcg PO DAILY vitamin B complex [B Complex-Vitamin B12] Tablet 1 tab PO DAILY acetaminophen 500 mg Tablet 500 mg PO PRN PRN ibuprofen [IBU] 400 mg Tablet 400 mg PO PRN PRN ascorbic acid (vitamin C) [Vitamin C] 500 mg Tablet 1,000 mg PO DAILY Discharge Instructions Instructions: Vertigo (ED) Additional Instructions: Please follow-up closely with your primary care physician. Please return to the emergency department for any worsening symptoms HPI General Date/Time Provider Initiated Documentation: 09/08/23 12:14. HPI Narrative: 67-year-old female presents with dizziness over the last several hours beginning last night sensation of room spinning and unsteadiness. Also gradual onset mild generalized headache. Related Data Home Medications Medication Instructions Recorded Confirmed acetaminophen 500 mg tablet 500 mg PO PRN PRN 05/18/19 09/08/23 ibuprofen 400 mg tablet (IBU) 400 mg PO PRN PRN 05/18/19 09/08/23 cholecalciferol (vitamin D3) 25 25 mcg PO DAILY 11/17/20 09/08/23 mcg (1,000 unit) capsule ascorbic acid (vitamin C) 500 mg 1,000 mg PO DAILY 02/12/21 09/08/23 tablet (Vitamin C) vitamin B complex (B 1 tab PO DAILY 07/25/23 09/08/23 Complex-Vitamin B12 tablet) meclizine 25 mg tablet 25 mg PO BID PRN dizziness #7 tabs 09/08/23 Previous Rx's Medication Instructions Recorded meclizine 25 mg tablet 25 mg PO BID PRN dizziness #7 tabs 09/08/23 Allergies Allergy/AdvReac Type Severity Reaction Status Date / Time omeprazole AdvReac Intermediate nausea Verified 09/08/23 12:28 General Stated Complaint: Dizzy/Sync PAOLA: 3 Review of Systems Narrative: Review of Systems Constitutional: negative Eyes: negative ENT: negative Cardiovascular: negative Respiratory: negative Gastrointestinal: negative : negative Musculoskeletal: negative Skin: negative Neurologic: Dizziness, headache Psych: negative Exam Narrative Exam Narrative: Physical Examination General: alert, awake, cooperative, resting comfortably, no acute distress HEENT: normocephalic, atraumatic; PERRL, EOM intact, conjunctiva normal; no nasal discharge; moist mucous membranes, oral and pharyngeal mucosa normal, tolerating secretions Neck: supple, trachea midline; full ROM Chest: normal to inspection Respiratory: normal respiratory effort, speaking in full sentences, clear to auscultation, no wheezing, rales or rhonchi Cardiac: regular rate, regular rhythm, S1S2 intact, no murmurs rubs or gallops GI: abdomen soft, non-tender, non-distended; no palpable mass or hepatosplenomegaly Skin: no lesions, rashes or trauma appreciated Neuro: AAOx3, cranial nerves II through XII intact, 5 out of 5 strength upper and lower extremities bilaterally, no truncal ataxia Extremities: Moving all extremities no trauma Psych: Appropriate mood and affect Course Vital Signs Vital signs: Vital Signs Temperature 36.7 C 09/08/23 11:57 Pulse 69 09/08/23 11:57 Respiratory Rate 16 09/08/23 11:57 Pulse Oximetry 98 09/08/23 11:57 Temperature 36.7 C 09/08/23 11:57 Temperature Source Tympanic 09/08/23 11:57 Pulse 69 09/08/23 11:57 Respiratory Rate 16 09/08/23 11:57 Blood Pressure 192/52 H 09/08/23 12:02 Blood Pressure Position Sitting 09/08/23 11:57 Pulse Oximetry 98 09/08/23 11:57 Oxygen Delivery Method Room Air 09/08/23 11:57 Oxygen Flow Rate 0 09/08/23 11:57 Pain Level 2 09/08/23 11:57 Lab/Test Results Lab/Test Results: Laboratory Tests Range/Units 09/08/23 12:22 WBC (4.4-10.8) 10^3/uL 7.45 RBC (3.93-5.22) 10^6/uL 5.09 Hgb (11.2-15.7) g/dL 14.3 Hct (36.0-46.0) % 42.8 MCV (80-95) fL 84 MCH (27.0-33.0) pg 28.1 MCHC (32.0-36.0) % 33.4 RDW (11.7-14.6) % 13.0 Plt Count (130-400) 10^3/uL 328 MPV (8.0-11.0) fL 10.1 Immature Gran % % 0.1 Neutrophils % % 64.3 Lymphocytes % % 23.4 Monocytes % % 7.8 Eosinophils % % 3.6 Basophils % % 0.8 Nucleated RBC % (0.0-0.3) % 0.0 Absolute Neutrophils (1.2-6.7) 10^3/uL 4.79 Absolute Lymphocytes (1.2-3.4) 10^3/uL 1.74 Absolute Monocytes (0.1-0.8) 10^3/uL 0.58 Absolute Eosinophils (0.0-0.7) 10^3/uL 0.27 Absolute Basophils (0.0-0.2) 10^3/uL 0.06 Medical Decision Making 67-year-old female presents with several hours of room spinning dizziness and unsteadiness, began last night while laying down in bed, gradual onset generalized headache, afebrile nontoxic nonmeningeal neurologically intact, consider peripheral vertigo versus electrolyte derangement lower suspicion for CVA or vertebral artery dissection lower suspicion for intracerebral hemorrhage. Will obtain basic labs, CTA head neck, EKG, trial of fluids meclizine and analgesia. Close reassessment 14: 50 patient feeling much better after meclizine. Likely resolving peripheral vertigo. Home care instructions and return precautions given Quality:SDOH Health Related Social Needs: No Data to Display PFSH All Active Problems (Updated 09/08/23 @ 14:51 by Jose Briones MD) Vertigo (Acute) Neuropathy (Acute) Hammertoe of left foot (Acute) Porokeratosis (Acute) Achilles tendon contracture, bilateral (Acute) Metatarsalgia, right foot (Acute) Lower back pain (Acute) Aortic valve regurgitation (Chronic 01/05/13) echo 2020 - mild , mod AR, mild MR echo 2022 - mod , Mod AR, Mod MR Gastroesophageal reflux disease without esophagitis (Chronic 03/27/15) Sensorineural hearing loss, bilateral (Chronic 07/27/13) wears hearing aids Varicosities of leg (Chronic) Anxiety (Chronic) Hypertension (Chronic) Tubular adenoma (Acute) 2020 tubular adenoma Wears hearing aid in both ears (Acute) Prediabetes (Acute) Medical History Rheumatic fever Surgical History S/P laparoscopic cholecystectomy S/P tubal ligation History of hysterectomy due to uterine prolapse History of colonoscopy with polypectomy (~02/13/21) H/O bilateral salpingo-oophorectomy 05/19/2019 at time of vaginal hysterectomy for uterine prolapse Family History Mother Diabetes Essential hypertension Heart disease Hyperlipidemia Stroke Father Heart disease Stroke Cancer Sister Cancer Social History Smoking/Tobacco Use Status: Never Second Hand Exposure: Yes Smoking risk assessment performed?: Yes Alcohol Intake: former Drug use: Never Substance use type: does not use Counseling given: No Counseling provided: none Caregiver/Support person: No Household members: spouse Housing: apartment Number of Children: 3 number of grandchildren: 2 Communication Needs: Corrective Lenses Education Level: high school Details: 10th grade Do you need help understanding health information?: Often current occupation: [employer]. Pets and animals: Yes Pets and animals: cat(s) Sexually active: No Do you think of yourself as: straight/heterosexual Current gender identity: female What is your relationship status?: How often do you talk on the phone with friends or family?: three or more times per week How often do you get together with friends or relatives?: twice per week How often do you attend catholic or christian services?: decline to answer Do you belong to any clubs or organized social groups?: no Panel score (0-1 are the most socially isolated patients): 2 What type of physical activity do you participate in: other Details: work activity Duration: > 90 minutes/day Ainsley/Baptism: Pentecostal Special ainsley needs: No Seatbelt use: always 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 Female Reproductive History Menstrual Menopause type: natural History History 3 Para 3 Hx # Term Pregnancies 3 Multiple births Hx # Pregnancies Ectopic pregnancies AB induced Hx Number of Living Children 3 AB spontaneous
[2023-09-08 13:12] LABS: ALT 23 U/L (14-59); AST 15 U/L (15-37); Albumin 3.4 g/dL (3.4-5.0); Alkaline Phosphatase 109 U/L (46-116); Anion Gap 7.9 mmol/L (3-11); BUN 19 mg/dL (7-18); Bilirubin, Total 0.9 mg/dL (0.2-1.0); CO2 30.1 mmol/L (21.0-32.0); CREATININE 0.8 mg/dL (0.55-1.02); Calcium 9.1 mg/dL (8.5-10.1); Chloride 107 mmol/L (98-107); Estimated GFR 79.71 (mL/min/1.73m2); Glucose 113 mg/dL (74-106); Potassium 4.3 mmol/L (3.5-5.1); Sodium 145 mmol/L (136-145); Total Protein 6.8 g/dL (6.4-8.2); Troponin I < 50 ng/L (< or =60)
[2023-09-08] MEDS: Omnipaque 350 MG/ML 100 ML BTL IJ (13:35)
[2023-09-08] MEDS: Normal Saline - Diluent 50 ML VIAL IJ (13:37)
== END 2023-09-08 15:25 | disposition home or self-care (01) ==
PROVIDERS: Emergency Provider Emergency Medicine; PCP Family Medicine
DX: R42 Dizziness and giddiness (principal); R51.9 Headache, unspecified
CPT/HCPCS: 70496; 70498; 80053; 93005; 96361; 96374; 99285; 83735; 84484; 85025; 93010; 99284; J0131; J3490

== ENCOUNTER → 2024-01-06 09:35 | Outpatient (BNVA) | payer OTHER, SELFPAY | PROVIDERS: PCP Family Medicine; Referring Provider Family Medicine; Visit Provider Internal Medicine Cardiovascular Disease | DX: I35.1 Nonrheumatic aortic (valve) insufficiency (principal) | CPT/HCPCS: 99213 ==

== ENCOUNTER 2024-02-11 00:40 | Outpatient (CLI) | payer OTHER, SELFPAY ==
--- NOTE | 2024-02-11 09:51 | DI.RAD_ITS ---
Exam(s) XR CERVICAL SPINE COMP 4-5V EXAM: XR CERVICAL SPINE COMP 4-5V CLINICAL HISTORY: neck pain,m54.2. TECHNIQUE: 2D digital imaging was performed. COMPARISON: No exams were available for comparison FINDINGS: Five views No evidence of fracture, listhesis, nor offset the spinal laminar line. There is no prevertebral sof t tissue swelling There is some disc space narrowing at C5-6 and C6-7 levels and anterior osseous lipping at these leve ls. Other disc spaces exhibit normal height. There is multilevel facet arthropathy. No cervical ri bs evident. There are bilateral Luschka joint osteophytes evident at C6-7 level. No significant oss eous lesions. IMPRESSION: Multilevel chronic degenerative disc disease as described above and multilevel facet arthropathy. No fractures nor listhesis. Incidentally noted is vascular calcification in the right-side of the neck most probably within the p roximal right internal carotid artery possibly associated with significant stenosis/plaque at this le janet. Recommend follow up carotid Doppler study. DATA REPOSITORY: RADIATION DOSE DELIVERED:
== END 2024-02-11 01:00 ==
LOC: DI 00:40
PROVIDERS: PCP Family Medicine; Visit Provider Family Medicine
DX: M54.2 Cervicalgia (principal)
CPT/HCPCS: 72050

== ENCOUNTER 2024-02-13 02:25 | Outpatient (CLI) | payer OTHER, SELFPAY ==
--- OUTSIDE RECORDS SUMMARY | 2024-02-13 02:29 | XMS_ITS | Encounter Summary ---
Author Organization [facility] Address [address] [place] [address] Care Team Providers Care Joint Cutter Name Role Phone Unknown, Provider Primary Care Provider [phone] Encounter Details Date Type Department Care Team (Late st Contact Info) Description 01/14/2011 Results Only [facility] ([facility] [place] [address] [place] [address] [phone] Marii Ronquillo PA Social History Tobacco Use Types Packs/Day Years Used Date Smoking Tobacco: Never Assessed Sex and Gender Information Value Date Recorded Sex Assigned at Not on file Gender Identity Not on file Sexual Orientation Not on file documented as of this encounter Plan of Treatment Not on file documented as of this encounter Procedures Procedure Name Priority Date/Time Associated Diagnosis Comments PAP TEST- RESULT ONLY Routine 01/14/2011 0:00 EDT documented in this encounter Results * PAP TEST- RESULT ONLY (01/14/2011 0:00 EDT) Pathology Report: CYTOPATHOLOGY REPORT ? Reports generated via electronic interface contain original data; ? however they are lacking the format of the original report. ? Caution should be taken when reading/interpreti ng unformatted reports. ? Name: ? MANUELMANDI FELDMAN ? Accession #: ? [id number] ? : ? 1955 (Age: 55) ??F ?Collect Date: ? 01/14/2011 ? Location: ? [facility] ? Receive Date: ? 01/15/2011 ? Provider: MARII BREA PA ? Copy to: ? Final Report ? SPECIMEN ADEQUACY ? Satisfactory for Evaluation ? - transformation zone component present ? GENERAL CATEGORIZATION ? Negative for Intraepithelial Lesion or Malignancy ? Menstural/Pregnanc y Status: ??Post Menopausal ? Hormonal/Contracep tive status: Tubal ligation ? Specimen/Source: ??Pap Test, Cervix/Endocervix, ThinPrep Imaging System with ? manual evaluation ? Document reviewed and electronically signed by: ? Jeff Bey, CT(ASCP) ? Report ??Date: 01/16/2011 15:13 ? HPV with Pap Test ? Date Ordered: ? 01/16/2011 ? Status: ?? Signed Out ?Date Complete: ? 01/21/2011 ? By: ??System Interface ? Date Reported: ? 01/21/2011 ? Interpretation ? RESULT: Negative for HPV types 16, 18, 31, 33, 35, 39, 45, 51, 52, ? 56, 58, 59, and 68. ? Comments ? Document reviewed and electronically signed by: ? System Interface ? Report date: 01/21/2011 ? By the signature above, the attending physician certifies that he/she has ? personally conducted a gross and/or microscopic examination of the described ? specimens and rendered or confirmed the above diagnosis. ? End of Report ? [facility] 01/14/2011 01/15/2011 Marii NOBLES PATHOLOGY ORDERABLES [facility] [address] [place] [address] documented in this encounter Visit Diagnoses Not on filedocumented in this encounter Care Teams Joint Cutter Relationship Specialty Start Date End Date Unknown, Provider, PCP - General 01/15/11 12/04/14 documented as of this encounter
--- OUTSIDE RECORDS SUMMARY | 2024-02-13 02:29 | XMS_ITS | Encounter Summary ---
Author Organization [facility] Address [address] [place] [address] Care Team Providers Care Bone Char Puller Name Role Phone Unknown, Provider Primary Care Provider Encounter Details Date Type Department Care Team (Latest Contact Info) Description 12/01/2014 15:32 EDT - 12/01/2014 23:59 EDT Hospital Encounter [address] [address] Unknown, Provider, Discharge Disposition: Home or Self Care Social History Tobacco Use Types Packs/Day Years Used Date Smoking Tobacco: Never Assessed Sex and Gender Information Value Date Recorded Sex Assigned at Not on file Gender Identity Not on file Sexual Orientation Not on file documented as of this encounter Discharge Disposition Disposition Code Departure Means Destination Home or Self [facility] documented in this encounter Plan of Treatment Not on file documented as of this encounter Visit Diagnoses Not on filedocumented in this encounter Care Teams Bone Char Puller Relationship Specialty Start Date End Date Unknown, Provider, PCP - General 01/15/11 12/04/14 documented as of this encounter
--- OUTSIDE RECORDS SUMMARY | 2024-02-13 02:29 | XMS_ITS | Encounter Summary ---
Author Organization [facility] Address [address] [place] [address] Care Team Providers Care Lithographic Proofer Name Role Phone Unknown, Provider Primary Care Provider Encounter Details Date Type Department Care Team (Latest Contact Info) Description 02/14/2014 11:36 EDT - 02/14/2014 23:59 EDT Hospital Encounter [address] [address] Unknown, Provider, Discharge Disposition: Home or Self Care Social History Tobacco Use Types Packs/Day Years Used Date Smoking Tobacco: Never Assessed Sex and Gender Information Value Date Recorded Sex Assigned at Not on file Gender Identity Not on file Sexual Orientation Not on file documented as of this encounter Discharge Disposition Disposition Code Departure Means Destination Home or Self Half-Way documented in this encounter Plan of Treatment Not on file documented as of this encounter Visit Diagnoses Not on filedocumented in this encounter Care Teams Lithographic Proofer Relationship Specialty Start Date End Date Unknown, Provider, PCP - General 01/15/11 12/04/14 documented as of this encounter
--- OUTSIDE RECORDS SUMMARY | 2024-02-13 02:29 | XMS_ITS | Encounter Summary ---
Author Organization [facility] Address [address] [place] [address] Care Team Providers Care Grain Elevator Motor Starter Name Role Phone Unknown, Provider Primary Care Provider Encounter Details Date Type Department Care Team (Late st Contact Info) Description 03/11/2014 Results Only [facility] [phone] Brandi Ramirez MD [address] [place] [address] Social History Tobacco Use Types Packs/Day Years Used Date Smoking Tobacco: Never Assessed Sex and Gender Information Value Date Recorded Sex Assigned at Not on file Gender Identity Not on file Sexual Orientation Not on file documented as of this encounter Plan of Treatment Not on file documented as of this encounter Procedures Procedure Name Priority Date/Time Associated Diagnosis Comments SURGICAL PATHOLOGY Routine 03/11/2014 20 :03 EST documented in this encounter Results * SURGICAL PATHOLOGY (03/11/2014 20:03 EST) Pathology Report: SURGICAL PATHOLOGY REPORT Reports generated via electronic interface contain original data; however they are lacking the format of the original report. Caution should be taken when reading/interpreti ng unformatted reports. Name: ? MANUELMANDI FELDMAN Norman ? Accession #: ? [id number] ? : ? 1955 (Age: 58) ??F ? Collect Date: ? 03/11/2014 ? Location: ? [facility] ? Receive Date: ? 03/11/2014 ? Provider: BRANDI RAMIREZ MD Copy to: TARUN JEWELL MD ? Final Pathologic Diagnosis: A. CERVIX, 3:00, BIOPSY: - ??Mature squamous epithelium with parakeratosis. - ??No squamous intraepithelial lesion identified. B. CERVIX, 9:00, BIOPSY: - ??Mature squamous epithelium with focal reactive changes and associated chronic cervicitis. - ??No squamous intraepithelial lesion identified. C. ENDOCERVIX, CURETTAGE: - ??Fragments of benign endocervical tissue with atrophic squamous metaplasia. - ??No squamous intraepithelial lesion identified. Document reviewed and electronically signed by: LAXMI OLVERA MD Report ??Date: 03/16/2014 17:32 By the signature above, the attending physician certifies that he/she has personally conducted a gross and/or microscopic examination of the described specimens and rendered or confirmed the above diagnosis. Specimen(s) Received: A. ??Colpo ectocervix 3 o'clock pos B. ??Colpo ectocervix 9 o'clock pos C. ??ECC Clinical History: ASC-US/(+) HPV Gross Description: A. ?Received in formalin labelled with proper patient identification (initials D, J) and ectocervix, 3 o'clock position is a single pink-kelly tissue fragment (0.4 x 0.2 x 0.1 cm). Submitted intact in A1. B. ?Received in formalin labelled with proper patient identification (initials D, J) and ectocervix, 9 o'clock position is a single pink-kelly tissue fragment (0.3 x 0.3 x 0.2 cm). Submitted intact in B1. C. ?Received in formalin labelled with proper patient identification (initials D, J) and ECC is an aggregate of pink-kelly tissue fragments (0.4 x 0.2 x 0.2 cm). Submitted in toto in C1 following filtration. Dr. Lazaro 03/12/2014 09:46 AM End of Report [facility] 03/11/2014 20:0 3 EST 03/11/2014 20:03 EST Brandi Ramirez MD PATHOLOGY ORDERABLES [facility] [address] [place] [address] documented in this encounter Visit Diagnoses Not on filedocumented in this encounter Care Teams Grain Elevator Motor Starter Relationship Specialty Start Date End Date Unknown, Provider, PCP - General 01/15/11 12/04/14 documented as of this encounter
--- OUTSIDE RECORDS SUMMARY | 2024-02-13 02:29 | XMS_ITS | Referral Summary ---
Author Organization [facility] Address [address] [place] [address] Care Team Providers Care Manager Of Patient Name Role Phone Wilber Diaz MD Primary Care Provider Social History Tobacco Use Types Packs/Day Years Used Date Smoking Tobacco: Never Assessed Interpersonal Safety Answer Date Record ed Physically Hurt Never 12/05/2019 Verbally Threaten Not on file 12/05/2019 Sex and Gender Information Value Date Recorded Sex Assigned at Not on file Gender Identity Not on file Sexual Orientation Not on file Plan of Treatment Not on file Care Teams Manager Of Patient Relationship Specialty Start Date End Date Wilber Diaz MD PCP - General 12/05/14
--- OUTSIDE RECORDS SUMMARY | 2024-02-13 02:29 | XMS_ITS | Encounter Summary ---
Author Organization [facility] Address [address] [place] [address] Care Team Providers Care Airport Duty Manager Name Role Phone Wilber Diaz MD Primary Care Provider [phone] Encounter Details Date Type Department Care Team (Late st Contact Info) Description 06/29/2018 Results Only [facility] [phone] Jayjay Baxter, SPRAYER OPERATOR [address] [place] [phone] Social History Tobacco Use Types Packs/Day Years [...] Diagnosis Comments PAP TEST- RESULT ONLY Routine 06/29/2018 0:00 EST documented in this encounter Results * PAP TEST- RESULT ONLY (06/29/2018 0:00 EST) Pathology Report: CYTOPATHOLOGY REPORT Reports generated via electronic interface contain original data; however they are lacking the format of the original report. Caution should be taken when reading/interpreti ng unformatted reports. Name: ? TABITHA SALCEDOE Norman ? Accession #: ? [id number] ? : ? 1955 (Age: 62) ??F ?Collect Date: ? 06/29/2018 ? Location: ? [facility] ? Receive Date: ? 07/01/2018 ? Provider: JAYJAY BAXTER DIRECTOR OF PROGRAMMING-BC Copy to: ? Final Report SPECIMEN ADEQUACY ? Satisfactory for Evaluation - transformation zone component present GENERAL CATEGORIZATION ? Negative for Intraepithelial Lesion or Malignancy ?? Menstrual/Pregnanc y Status: ??Post Menopausal Specimen/Source: ??Pap Test, Cervix/Endocervix, ThinPrep Imaging System with manual evaluation Document reviewed and electronically signed by: ? Avis Manzanares, CT(ASCP)(IAC) ? Report ??Date: 07/03/2018 12:59 HPV with Pap Test ? Date Ordered: ? 07/02/2018 ? Status: ?? Signed Out ?Date Complete: ? 07/07/2018 ? By: ??System Interface ? Date Reported: ? 07/07/2018 ? Interpretation RESULT: Negative for HPV. No E6 or E7 mRNA is detected from HPV types 16,18,31,33,35, 39,45,51,52,56,58, 59,66, and 68 by electric meter installer helper mediated amplification. Comments Document reviewed and electronically signed by: ? System Interface ? Report date: 07/07/2018 By the signature above, the attending physician certifies that he/she has personally conducted a gross and/or microscopic examination of the described specimens and rendered or confirmed the above diagnosis. End of Report [facility] 06/29/2018 07/01/2018 Jayjay Baxter SPRAYER OPERATOR PATHOLOGY ORDERABLES [facility] [address] [place] [address] documented in this encounter Visit Diagnoses Not on filedocumented in this encounter Care Teams Airport Duty Manager Relationship Specialty Start Date End Date Wilber Diaz MD PCP - General 12/05/14 documented as of this encounter
--- OUTSIDE RECORDS SUMMARY | 2024-02-13 02:29 | XMS_ITS | Encounter Summary ---
Author Organization Health system Address [address] [place] [address] Care Team Providers Care Legal Examiner Name Role Phone Wilber Diaz MD Primary Care Provider [phone] Encounter Details Date Type Department Care Team (Late st Contact Info) Description 02/13/2021 Lab Requisition [facility] & Laboratory Medicine - [facility] [address] [place] [address] Deedee Kahn, DO [address] [place] [address] Encounter for other general examination Social History Tobacco Use Types Packs/Day Years [...] Priority Date/Time Associated Diagnosis Comments SURGICAL PATHOLOGY Today 02/13/2021 11 :00 EDT Encounter for other general examination documented in this encounter Results * SURGICAL PATHOLOGY (02/13/2021 11:00 EDT) Note to Patient The following pathology results have been interpreted by your pathologist and may be available to you before your health provider has had the opportunity to review them. Please allow time for your provider to receive these results and explore management options, if applicable. 02/14/2021 11:54 EDT [facility] Final Diagnosis A. COLON, 60 CMS, POLYP, BIOPSY: - Tubular adenoma. 02/14/2021 11:54 EDT [facility] Attestation By the signature below, the attending physician certifies that they have 1) personally conducted a gross and/or microscopic examination of the described specimen(s), and/or personally interpreted the results of laboratory testing of the described specimen(s), and 2) personally rendered or confirmed the above diagnosis. 02/14/2021 11:54 [facility] at 1154 Clinical History Screening 02/14/2021 11:54 T [facility] Gross Description A. Received in formalin labelled with proper patient identification (initials D, J) and polyp @ 60 cm are two kelly tissues, 0.2 x 0.2 x 0.2 cm and 0.3 x 0.2 x 0.1 cm. Entirely submitted in A1. GIULIANO SAUNDERS(ASCP) 02/13/2021 16:31 02/14/2021 11:54 T [facility] Performing Lab [facility] 02/14/2021 11:54 T [facility] Scanned Images 02/14/2021 11:54 [facility] Tissue POLYP OF COLON / Unknown 02/13/2021 11:00 EDT 02/13/2021 16:12 EDT Deedee Kahn DO PATHOLOGY ORDERABLES [facility] [address] [place] [address] documented in this encounter Visit Diagnoses Diagnosis Encounter for other general examination documented in this encounter Care Teams Legal Examiner Relationship Specialty Start Date End Date Wilber Diaz MD PCP - General 12/05/14 documented as of this encounter
--- OUTSIDE RECORDS SUMMARY | 2024-02-13 02:29 | XMS_ITS | Encounter Summary ---
Author Organization [facility] [place] [address] Care Team Providers Care Screwhead Stoner And Polisher Name Role Phone Brennan LOPEZ MD, Sohail Lee Primary Care Provider Reason for Referral * Diagnostic Test (Routine) - Closed Specialty Diagnoses / Procedures Referred By Contac t Referred To Contact Cardiology Diagnoses Aortic valve disease Procedures Mobile Echo Rodrigo Heller MD [address] [place] [address] [address] [place] [address] [facility] [place] [address] Referral ID Status Reason Start Date Expiration Date V isits Requested Visits Authorized [id number] Closed Specialty Service Requested 12/25/2023 12/24/2024 1 1 Reason for Visit * Diagnostic Test (Routine) - Closed Specialty Diagnoses / Procedures Referred By Contac t Referred To Contact Cardiology Diagnoses Aortic valve disease Procedures Mobile Echo Rodrigo Heller MD [address] [place] [address] DR [address] [place] [address] [facility] [place] [address] Referral ID Status Reason Start Date Expiration Date V isits Requested Visits Authorized [id number] Closed Specialty Service Requested 12/25/2023 12/24/2024 1 1 Encounter Details Date Type Department Care Team (Latest Contact Info) Description 12/24/2023 4:30 PM EDT - 12/24/2023 11:59 PM EDT Hospital Encounter [place] [address] Rodrigo Heller MD [address] [place] [address] [place] [address] Aortic valve disease Discharge Disposition: Home Social History Tobacco Use Types Packs/Day Years Used Date Smoking Tobacco: Never Assessed Sex and Gender Information Value Date Recorded Sex Assigned at Not on file Gender Identity Not on file Sexual Orientation Not on file documented as of this encounter Medications at Time of Discharge Medication Sig Dispensed Refills Start Date End Date losartan (COZAAR) 50 mg tablet 50mg, PO, Once daily 06/02/2006 documented as of this encounter Plan of Treatment Not on file documented as of this encounter Procedures Procedure Name Priority Date/Time Associated Diagnosis Comments ECHO COMPLETE Routine 12/25/2023 8:10 AM EDT Aortic valve disease documented in this encounter Results * ECHO COMPLETE (12/25/2023 8:10 AM EDT) Anatomical Region Laterality Modality Other 12/24/2023 2:40 PM EDT Narrative 12/25/2023 9:36 AM EDT [address] [place] [address] ? Echocardiogram Report Name: MANDI SALCEDO ?Study Date: 12/24/2023 02:40 PMBP: 142/65 mmHg ? Patient Location: : 1955 ? Account: [id number] Age: 68 yrs Gender: Female Ordering Physician: RODRIGO HELLER Referring Physician: RODRIGO HELLER Reason For Study: Aortic valve disease Exam Location: [facility]. Interpretation Summary Normal left ventricle size with mild increased septal thickness. Normal left ventricle systolic function. LV ejection fraction 60%. Normal right ventricle. Mild to moderate aortic stenosis. Mean AV gradient 23 mmHg. AV area by continuity is 1.2 cm^2. DI 0.33. Mild to moderate mitral regurgitatoin. 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 No comparison study is available. Procedure Complete-[id number]. Satisfactory quality. Left Ventricle Left ventricle is of normal size. There is no ventricular septal defect. Mildly increased thickness of the basal septum with no obstruction to LV outflow. Left ventricular systolic function is normal. Left ventricular ejection fraction is estimated visually at 60%. There are no segmental wall motion abnormalities. Right Ventricle The right ventricle is of normal size. Right ventricular systolic function is normal. Left Atrium The left atrium is mildly dilated. There is no evidence for an atrial septal defect. Right Atrium The right atrium is normal. Aortic Valve The aortic valve is mildly calcified. The aortic valve appears tricuspid but cannot exclude partial fusion of the non-coronary and left coronary cusps with a raphe. There is mild to moderate aortic stenosis. The mean gradient across the aortic valve is 23.3 mmHg. The peak instantaneous gradient across the aortic valve is 37.4 mmHg. The aortic valve area calculated using the continuity equation is 1.2 cm^2. There is moderate aortic regurgitation. Mitral Valve The mitral valve is structurally and functionally normal. There is mild to moderate mitral regurgitation. Tricuspid Valve The tricuspid valve is structurally and functionally normal. There is mild tricuspid regurgitation. Pulmonic Valve The pulmonic valve appears to be structurally and functionally normal. There is trace pulmonic valve regurgitation. Great Arteries The diameter at the level of the sinuses of Valsalva is 3.4 cm. The maximum diameter of the proximal ascending aorta is 4.2 cm. The main pulmonary artery is not well visualized. Venous Inferior vena cava is normal in size. Inferior vena cava collapse greater than 50% with respiration. Pericardium/Pleural There is no pericardial effusion. A pericardial fat pad is present. Hemodynamics The peak right ventricular systolic pressure is 21.8 mmHg . There is Grade I LV diastolic dysfunction (abnormal relaxation with normal left ventricular filling pressure). ? 2D Measurements ? Volumes ?IVSd: 1.2 cm ? LA Volume Index: ?LVIDd: 4.8 cm ?36.1 ml/m2 ?LVIDs: 3.4 cm ?SV(LVOT): 89.6 ml ?LVPWd: 1.2 cm ?LV Stroke Volume: 89.6 ml ?RWT: 0.50 {ratio} ?LV mass(C)d: 214.9 grams ?Ao root diam: 3.4 cm ?asc Aorta Diam: 4.2 cm ?LVOT diam: 2.1 cm ?TAPSE_phl: 2.0 cm Doppler LV V1 VTI: 25.2 cm LVOT max Velocity: 113.3 cm/sec Ao V2 VTI: 76.8 cm Ao Max: 305.5 cm/sec Ao valve max: 37.4 mmHg Ao valve mean: 23.3 mmHg MV E max morgan: 86.4 cm/sec MV A max morgan: 113.0 cm/sec MV E/A: 0.76 MV dec time: 0.38 sec MV mean P.6 mmHg Lat Peak E' Morgan: 7.1 cm/sec E/e' (lat): 12.1 Med Peak E' Morgan: 6.7 cm/sec E/e' (med): 12.9 E/e' Average: 12.5 STEVEN(I,D): 1.2 cm2 Dimensionless index Aov: 0.33 AI P1/2t: 790.2 msec TR max morgan: 216.5 cm/sec RVSP(TR): 21.8 mmHg I ?WMSI = 1.00 ? % Normal = 100 ?Segments ??Size X - Cannot ?? 1 - Normal ?? 2 - ? 3 - Akinetic 4 - ?1-2 ? small Interpret ? Hypokinetic ?Dyskinetic ?? 3-5 ? moderate 5 - ? 6-14 ?large Aneurysmal ?15-16 ?? diffuse Procedure Note Ismael Hope MD - 12/25/2023 [address] [place] [address] Echocardiogram Report Name: MANDI SALCEDO Study Date:12/24/2023 02:40 PMBP: 142/65 mmHg Patient Location: : 1955 Account: [id number] Age: 68 yrs Gender: Female Ordering Physician: RODRIGO HELLER Referring Physician: RODRIGO HELLER Reason For Study: Aortic valve disease Exam Location: [facility]. Interpretation Summary Normal left ventricle size with mild increased septal thickness. Normalleft ventricle systolic function. LV ejection fraction 60%. Normal right ventricle. Mild to moderate aortic stenosis. Mean AV gradient 23 mmHg. AV area bycontinuity is 1.2 cm^2. DI 0.33. Mild to moderate mitral regurgitatoin. 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 No comparison study is available. Procedure Complete-[id number]. Satisfactory quality. Left Ventricle Left ventricle is of normal size. There is no ventricular septal defect.Mildly increased thickness of the basal septum with no obstruction to LV outflow.Left ventricular systolic function is normal. Left ventricular ejectionfraction is estimated visually at 60%. There are no segmental wall motionabnormalities. Right Ventricle The right ventricle is of normal size. Right ventricular systolic functionis normal. Left Atrium The left atrium is mildly dilated. There is no evidence for an atrialseptal defect. Right Atrium The right atrium is normal. Aortic Valve The aortic valve is mildly calcified. The aortic valve appears tricuspidbut cannot exclude partial fusion of the non-coronary and left coronary cuspswith a raphe. There is mild to moderate aortic stenosis. The mean gradient acrossthe aortic valve is 23.3 mmHg. The peak instantaneous gradient across theaortic valve is 37.4 mmHg. The aortic valve area calculated using the continuityequation is 1.2 cm^2. There is moderate aortic regurgitation. Mitral Valve The mitral valve is structurally and functionally normal. There is mildto moderate mitral regurgitation. Tricuspid Valve The tricuspid valve is structurally and functionally normal. There ismild tricuspid regurgitation. Pulmonic Valve The pulmonic valve appears to be structurally and functionally normal.There is trace pulmonic valve regurgitation. Great Arteries The diameter at the level of the sinuses of Valsalva is 3.4 cm. Themaximum diameter of the proximal ascending aorta is 4.2 cm. The main pulmonaryartery is not well visualized. Venous Inferior vena cava is normal in size. Inferior vena cava collapse greaterthan 50% with respiration. Pericardium/Pleural There is no pericardial effusion. A pericardial fat pad is present. Hemodynamics The peak right ventricular systolic pressure is 21.8 mmHg . There is GradeI LV diastolic dysfunction (abnormal relaxation with normal left ventricularfilling pressure). 2D Measurements Volumes IVSd: 1.2 cm LA VolumeIndex: LVIDd: 4.8 cm 36.1 ml/m2 LVIDs: 3.4 cm SV(LVOT): 89.6ml LVPWd: 1.2 cm LV Stroke Volume:89.6 ml RWT: 0.50 {ratio} LV mass(C)d: 214.9 grams Ao root diam: 3.4 cm asc Aorta Diam: 4.2 cm LVOT diam: 2.1 cm TAPSE_phl: 2.0 cm Doppler LV V1 VTI: 25.2 cm LVOT max Velocity: 113.3 cm/sec Ao V2 VTI: 76.8 cm Ao Max: 305.5 cm/sec Ao valve max: 37.4 mmHg Ao valve mean: 23.3 mmHg MV E max morgan: 86.4 cm/sec MV A max morgan: 113.0 cm/sec MV E/A: 0.76 MV dec time: 0.38 sec MV mean P.6 mmHg Lat Peak E' Morgan: 7.1 cm/sec E/e' (lat): 12.1 Med Peak E' Morgan: 6.7 cm/sec E/e' (med): 12.9 E/e' Average: 12.5 STEVEN(I,D): 1.2 cm2 Dimensionless index Aov: 0.33 AI P1/2t: 790.2 msec TR max morgan: 216.5 cm/sec RVSP(TR): 21.8 mmHg I WMSI = 1.00 % Normal = 100 SegmentsSize X - Cannot 1 - Normal 2 - 3 - Akinetic 4 - 1-2small Interpret Hypokinetic Dyskinetic 3-5moderate 5 - 6-14large Aneurysmal 15-16diffuse Rodrigo Heller MD ECHO ORDERABLES documented in this encounter Visit Diagnoses Diagnosis Aortic valve disease Aortic valve disorders documented in this encounter Care Teams Screwhead Stoner And Polisher Relationship Specialty Start Date End Date Sohail Amin III, MD [address] [address] PCP - General 03/27/10 documented as of this encounter
--- OUTSIDE RECORDS SUMMARY | 2024-02-13 02:29 | XMS_ITS | Encounter Summary ---
Author Organization [facility] Address [address] [place] [address] Care Team Providers Care Rivet Tapping Machine Operator Name Role Phone Unknown, Provider Primary Care Provider [phone] Encounter Details Date Type Department Care Team (Latest Contact Info) Description 03/11/2014 15:46 EST - 03/11/2014 23:59 EST Hospital Encounter [address] [address] Unknown, Provider, Discharge Disposition: Home or Self [...] on filedocumented in this encounter Care Teams Rivet Tapping Machine Operator Relationship Specialty Start Date End Date Unknown, Provider, PCP - General 01/15/11 12/04/14 documented as of this encounter
--- OUTSIDE RECORDS SUMMARY | 2024-02-13 02:29 | XMS_ITS | Clinical Summary ---
Author Organization [facility] Address [address] [place] [address] Care Team Providers Care Addresser Name Role Phone Wilber Diaz MD Primary Care Provider [phone] Social History Tobacco Use Types Packs/Day Years Used Date Smoking Tobacco: Never Assessed Interpersonal Safety Answer Date Record ed Physically Hurt Never 12/05/2019 Verbally Threaten Not on file 12/05/2019 Sex and Gender Information Value Date Recorded Sex Assigned at Not on file Gender Identity Not on file Sexual Orientation Not on file Plan of Treatment Health Maintenance Due Date Last Done Comments Hepatitis C Screen 1955 RSV Immunization ( o r 60+ Years) (1 - 1-dose 60+ series) 2013 Fall Risk Screening 2018 COVID-19 Vaccine (2022- season) 2023 Care Teams Addresser Relationship Specialty Start Date End Date Wilber Diaz MD PCP - General 12/05/14
--- OUTSIDE RECORDS SUMMARY | 2024-02-13 02:29 | XMS_ITS | Clinical Summary ---
Author Organization Formerly [facility] [place] [address] Care Team Providers Care Loan Collector Name Role Phone Brennan LOPEZ MD, Sohail Lee Primary Care Provider Allergies Active Allergy Reactions Criticality Noted Date Comments Royal Inhibitors CIS - Cough Medications Medication Sig Dispensed Refills Start Date End Date Status losartan (COZAAR) 50 mg tablet 50mg, PO, Once daily 06/02/2006 Active Encounters Date Type Department Care Team Description 12/24/2023 4:30 PM EDT - 12/24/2023 11:59 PM EDT Hospital Encounter [place] [address] Rodrigo Heller MD Aortic valve disease Discharge Disposition: Home from Last 3 Months Social History Tobacco Use Types Packs/Day Years Used Date Smoking Tobacco: Never Assessed Sex and Gender Information Value Date Recorded Sex Assigned at Not on file Gender Identity Not on file Sexual Orientation Not on file Plan of Treatment Health Maintenance Due Date Last Done Comments CT Colonography 1955 Colonoscopy 1955 Colorectal Cancer Screening 1955 FIT DNA 1955 FIT 1955 Sigmoidoscopy (10 year) with FIT yearly 1955 Sigmoidoscopy 1955 Hepatitis C Screening 11/05/1971 Tetanus/Diphtheria/Pertussis Vaccines (1 - Tdap) 11/04 Breast Cancer Share Decision Needed 1993 Breast Cancer screening 1993 Zoster vaccine (1 of 2) 11/05/2003 Advance Directive 2008 Bone Density Scan 2018 Pneumoccocal Vaccine: 65+ (1 of 1 - PCV) 2018 Covid-19 Vaccine (1 - season) 2024 Influenza (Flu) vaccine (1 o f 1 - Influenza standard series) 01/04/2024 Procedures Procedure Name Priority Date/Time Associated Diagnosis Comments ECHO COMPLETE Routine 12/25/2023 8:10 AM EDT Aortic valve disease from Last 3 Months Results * ECHO COMPLETE (12/25/2023 8:10 AM EDT) Anatomical Region Laterality Modality Other 12/24/2023 2:40 PM EDT Narrative 12/25/2023 9:36 AM EDT [address] [place] [address] ? Echocardiogram Report Name: MATIAS MANDI ?Study Date: 12/24/2023 02:40 PMBP: 142/65 mmHg ? Patient Location: : 1955 ? Account: [id number] Age: 68 yrs Gender: Female Ordering Physician: RODRIGO HELLER Referring Physician: RODRIGO HELLER Reason For Study: Aortic valve disease Exam Location: [facility]. Interpretation Summary Normal left ventricle size with mild increased septal thickness. Normal left ventricle systolic function. LV ejection fraction 60%. Normal right ventricle. Mild to moderate aortic stenosis. Mean AV gradient 23 mmHg. AV area by continuity is 1.2 cm^2. DI 0.33. Mild to moderate mitral regurgitatoin. 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 No comparison study is available. Procedure Complete-[id number]. Satisfactory quality. Left Ventricle Left ventricle is [...] Note Ismael Hope MD - 12/25/2023 [address] [place] [address] Echocardiogram Report Name: MANDI SALCEDO Study Date:12/24/2023 02:40 PMBP: 142/65 mmHg Patient Location: : 1955 Account: [id number] Age: 68 yrs Gender: Female Ordering Physician: RODRIGO HELLER Referring Physician: RODRIGO HELLER Reason For Study: Aortic valve disease Exam Location: [facility]. Interpretation Summary Normal left ventricle size with mild increased septal thickness. Normalleft ventricle systolic function. LV ejection fraction 60%. Normal right ventricle. Mild to moderate aortic stenosis. Mean AV gradient 23 mmHg. AV area bycontinuity is 1.2 cm^2. DI 0.33. Mild to moderate mitral regurgitatoin. 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 No comparison study is available. Procedure Complete-[id number]. Satisfactory quality. Left Ventricle Left ventricle is [...] Aneurysmal 15-16diffuse Rodrigo Heller MD ECHO ORDERABLES from Last 3 Months Care Teams Loan Collector Relationship Specialty Start Date End Date Sohail Amin III, MD [address] [place] [id number] PCP - General 03/27/10
--- OUTSIDE RECORDS SUMMARY | 2024-02-13 02:29 | XMS_ITS | Encounter Summary ---
Author Organization [facility] Address [address] [place] [address] Care Team Providers Care Diamond Assorter Name Role Phone Tarun Jewell MD Primary Care Provider [phone] Encounter Details Date Type Department Care Team (Late st Contact Info) Description 03/31/2015 Results Only [facility] [phone] Tarun Jewell MD [address] [facility] [place] [phone] Social History Tobacco Use Types Packs/Day Years [...] Diagnosis Comments PAP TEST- RESULT ONLY Routine 03/31/2015 0:00 EST documented in this encounter Results * PAP TEST- RESULT ONLY (03/31/2015 0:00 EST) Pathology Report: CYTOPATHOLOGY REPORT Reports generated via electronic interface contain original data; however they are lacking the format of the original report. Caution should be taken when reading/interpreti ng unformatted reports. Name: ? MANDI SALCEDO ? Accession #: ? [id number] ? : ? 1955 (Age: 59) ??F ?Collect Date: ? 03/31/2015 ? Location: ? [facility] ? Receive Date: ? 04/04/2015 ? Provider: TARUN JEWELL MD Copy to: ? Final Report SPECIMEN ADEQUACY ? Satisfactory for Evaluation - transformation zone component present GENERAL CATEGORIZATION ? Negative for Intraepithelial Lesion or Malignancy INTERPRETATION ? Reactive cellular changes associated with inflammation present (includes repair). Last Menstrual Period: unknown Hormonal/Contracep tive status: None Specimen/Source: ??Pap Test, Cervix/Endocervix, ThinPrep Imaging System with manual evaluation Document reviewed and electronically signed by: ? MAGDA CAZARES MD ? Report ??Date: 04/06/2015 17:05 HPV with Pap Test ? Date Ordered: ? 04/06/2015 ? Status: ?? Signed Out ?Date Complete: ? 04/11/2015 ? By: ??System Interface ? Date Reported: ? 04/11/2015 ? Interpretation RESULT: Negative for HPV. No E6 or E7 mRNA is detected from HPV types 16,18,31,33,35, 39,45,51,52,56,58, 59,66, and 68 by storage specialist mediated amplification. Comments Document reviewed and electronically signed by: ? System Interface ? Report date: 04/11/2015 By the signature above, the attending physician certifies that he/she has personally conducted a gross and/or microscopic examination of the described specimens and rendered or confirmed the above diagnosis. End of Report [facility] 03/31/2015 04/04/2015 Tarun Jewell MD PATHOLOGY ORDERABLES [facility] [address] [place] [address] documented in this encounter Visit Diagnoses Not on filedocumented in this encounter Care Teams Diamond Assorter Relationship Specialty Start Date End Date Tarun Jewell MD PCP - General 12/05/14 documented as of this encounter
--- OUTSIDE RECORDS SUMMARY | 2024-02-13 02:29 | XMS_ITS | Encounter Summary ---
Author Organization [facility] Address [address] [place] [address] Care Team Providers Care Tile Presser Name Role Phone Wilber Diaz MD Primary Care Provider [phone] Encounter Details Date Type Department Care Team (Late st Contact Info) Description 05/19/2019 Lab Requisition [facility] Pathology & Laboratory Medicine - [facility] [address] [place] [address] Amber Villalpando, LARGE ENGINE ASSEMBLER [address] [place] [phone] Encounter for other general examination Social History [...] Date/Time Associated Diagnosis Comments SURGICAL PATHOLOGY Today 05/19/2019 8: 27 EST Encounter for other general examination documented in this encounter Results * SURGICAL PATHOLOGY (05/19/2019 8:27 EST) Final Diagnosis A. UTERUS, CERVIX, RIGHT FALLOPIAN TUBE, AND LEFT AND RIGHT OVARIES, HYSTERECTOMY, RIGHT SALPINGECTOMY AND BILATERAL OOPHORECTOMY: - Endometrium: - Inactive endometrium with cystic atrophy. - Benign endometrial polyp with cystic atrophy; no cytologic atypia. - Myometrium: - Extensive adenomyosis. - Leiomyomata, intramural (0.5 cm in largest diameter). - Cervix: - Mild chronic cervicitis. - Serosa: - No specific pathologic features. - Fallopian tube, right: - Focal endometriosis. - Ovaries, bilateral: - Focal endometriosis. Terrell Resendiz MD 05/31/2019 8:06 [facility] at 0806 Clinical History Uterine prolapse. 05/31/2019 8:06 [facility] Attestation There was significant resident/fellow involvement in the diagnostic evaluation of this case. By the signature below, the attending physician certifies that they have personally conducted a gross and/or microscopic examination of the described specimens and rendered or confirmed the above diagnosis. 05/31/2019 8:06 [facility] at 0806 Gross Description A. Received in formalin labelled with proper patient identification (initials D, J) and uterus, right tube and right ovary, and left ovary is an intact uterus and cervix (85.0 g, 8.5 cm cervix to fundus x 5.2 cm cornu to cornu x 2.7 cm anterior to posterior). Included with the specimen is the right fallopian tube (3.5 x 0.9 x 0.8 cm) with attached right ovary (2.5 x 1.7 x 1.3 cm). Also included and attached is the left ovary (3.9 x 2.3 x 1.1 cm). The uterine serosa is brown purple and smooth. The endometrium is kelly and lush and has a thickness of 0.1 cm. The myometrium is pink with a trabecular pattern and ranges from 0.5 cm to 1.1 cm in thickness. In the posterior endometrial cavity there is a large endometrial polyp (3.1 x 3.0 x 0.9 cm) overlying normal kelly and lush endometrium. The ectocervix is white and smooth, and the endocervix is kelly with the normal herringbone pattern. The left and right ovaries have a white and nodular outer surface and sectioning discloses a firm yellow cut surface. The right fallopian tube has white fibrotic serosa with scant fimbria visible and sectioning discloses an unremarkable cut surface with a pinpoint lumen throughout. Sports Activities Foul Judge sections are submitted as follows: BLOCK PREEZ A1-A2- 2 full thickness sections, anterior uterus A3- anterior cervical canal, longitudinal section A4-A5- 2 full thickness sections, posterior uterus A6- posterior cervical canal, longitudinal section A7- full thickness uterine wall including polyp stalk A8-A10- endometrial polyp, serially sectioned and entirely submitted A11- left ovary, 2 high school admissions representative sections A12- right fallopian tube, 2 high school admissions representative sections and possible fimbria A13- right ovary, 2 high school admissions representative sections Terrell Resendiz MD 05/20/2019 15:55 05/31/2019 8:06 EST [facility] Resident/Yovanny w: Terrell Resendiz MD 05/31/2019 8:06 EST [facility] Scanned Images 05/31/2019 8:06 EST [facility] Tissue SPECIMEN FROM UTERUS / Unknown 05/19/2019 8:27 EST 05/19/2019 23:45 EST Amber Villalpando LARGE ENGINE ASSEMBLER PATHOLOGY ORDERABLES Performing Organization Address City/State/[facility] Co de Phone Number [facility] [address] [place] [address] documented in this encounter Visit Diagnoses Diagnosis Encounter for other general examination documented in this encounter Care Teams Tile Presser Relationship Specialty Start Date End Date Wilber Diaz MD PCP - General 12/05/14 documented as of this encounter
--- OUTSIDE RECORDS SUMMARY | 2024-02-13 02:29 | XMS_ITS | Encounter Summary ---
Author Organization [facility] Address [address] [place] [address] Care Team Providers Care Stone Splitter Name Role Phone Unknown, Provider Primary Care Provider [phone] Encounter Details Date Type Department Care Team (Late st Contact Info) Description 02/14/2014 Results Only [facility] - [facility] ([facility] [place] [address] [place] [id number] Marii Ronquillo PA Social History Tobacco Use [...] Diagnosis Comments PAP TEST- RESULT ONLY Routine 02/14/2014 0:00 EDT documented in this encounter Results * PAP TEST- RESULT ONLY (02/14/2014 0:00 EDT) Pathology Report: CYTOPATHOLOGY REPORT Reports generated via electronic interface contain original data; however they are lacking the format of the original report. Caution should be taken when reading/interpreti ng unformatted reports. Name: ? MANUELCurtis MANDI Norman ? Accession #: ? [id number] ? : ? 1955 (Age: 58) ??F ?Collect Date: ? 02/14/2014 ? Location: ? [facility] ? Receive Date: ? 02/15/2014 ? Provider: MARII NOBLES Copy to: ? Final Report SPECIMEN ADEQUACY ? Satisfactory for Evaluation - transformation zone component present GENERAL CATEGORIZATION ? Epithelial Cell Abnormality INTERPRETATION ? Squamous Cell Abnormality - Atypical squamous cells, undetermined significance (ASC-US). EDUCATIONAL NOTES/RECOMMENDATI ONS ? [facility] recommends following ASCCP's 2012 Updated Consensus Guidelines for the Management of Abnormal Cervical Cancer Screening Tests and Cancer Precursors (JLGTD, 2013; 17(5):S1-S27). ??Consensus guidelines are available online at www.asccp.org. Menstrual/Pregnanc y Status: ??Post Menopausal Specimen/Source: ??Pap Test, Cervix/Endocervix, ThinPrep Imaging System with manual evaluation Document reviewed and electronically signed by: ? HEBER HIDALGO MD ? Report ??Date: 02/21/2014 15:28 HPV with Pap Test ? Date Ordered: ? 02/21/2014 ? Status: ?? Signed Out ?Date Complete: ? 02/23/2014 ? By: ??System Interface ? Date Reported: ? 02/23/2014 ? 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 E6 OR E7 mRNA from one or more types of HPV types 16,18,31, 33,35,39,45,51,52, 56,58,59,66, and 68 is detected by lead printer mediated amplification. High and intermediate risk HPV types are associated with most squamous intraepithelial lesions and cervical cancers. Comments Document reviewed and electronically signed by: ? System Interface ? Report date: 02/23/2014 By the signature above, the attending physician certifies that he/she has personally conducted a gross and/or microscopic examination of the described specimens and rendered or confirmed the above diagnosis. End of Report [facility] 02/14/2014 02/15/2014 Marii NOBLES PATHOLOGY ORDERABLES Performing Organization Address City/State/[facility] Co de Phone Number [facility] [address] [place] [address] documented in this encounter Visit Diagnoses Not on filedocumented in this encounter Care Teams Stone Splitter Relationship Specialty Start Date End Date Unknown, Provider, PCP - General 01/15/11 12/04/14 documented as of this encounter
--- OUTSIDE RECORDS SUMMARY | 2024-02-13 02:29 | XMS_ITS | Encounter Summary ---
Author Organization [facility] Address [address] [place] [address] Care Team Providers Care Life Advisor Name Role Phone Unknown, Provider Primary Care Provider [phone] Encounter Details Date Type Department Care Team (Late st Contact Info) Description 12/01/2014 Results Only [facility] [phone] Jesu Field MD [address] [facility] [address] [place] [address] Social History Tobacco Use Types Packs/Day Years Used Date Smoking Tobacco: Never Assessed Sex and Gender Information Value Date Recorded Sex Assigned at Not on file Gender Identity Not on file Sexual Orientation Not on file documented as of this encounter Plan of Treatment Not on file documented as of this encounter Procedures Procedure Name Priority Date/Time Associated Diagnosis Comments SURGICAL PATHOLOGY Routine 12/01/2014 18 :13 EDT documented in this encounter Results * SURGICAL PATHOLOGY (12/01/2014 18:13 EDT) Pathology Report: SURGICAL PATHOLOGY REPORT Reports generated via electronic interface contain original data; however they are lacking the format of the original report. Caution should be taken when reading/interpretin g unformatted reports. Name: ? MANDI SALCEDO ? Accession #: ? [id number] ? : ? 1955 (Age: 59) ??F ? Collect Date: ? 12/01/2014 ? Location: ? [facility] ? Receive Date: ? 12/02/2014 ? Provider: ARCHANA FIELD MD Copy to: TARUN JEWELL MD ? Final Pathologic Diagnosis: A. SMALL BOWEL, SECOND PORTION DUODENUM, BIOPSY: - ??Duodenal mucosa with no specific pathologic features. B. STOMACH, ANTRUM AND BODY, BIOPSY: - ??Gastric antral mucosa with mild reactive gastropathy. - ??Oxyntic mucosa with no specific pathologic features. C. GASTROESOPHAGEAL JUNCTION, BIOPSY: - ??Squamocolumnar junctional mucosa with reflux esophagitis. - ??Negative for intestinal metaplasia or dysplasia. ?? Document reviewed and electronically signed by: CALLY SEWELL MD Report ??Date: 12/06/2014 13:28 By the signature above, the attending physician certifies that he/she has personally conducted a gross and/or microscopic examination of the described specimens and rendered or confirmed the above diagnosis. Specimen(s) Received: A. ??2nd portion bx B. ??Antrum and body bx C. ??GE junction bx Clinical History: Esophagitis; gastritis; duodenitis; clinical diagnosis code: 787.30 Gross Description: A. ?Received in formalin labelled with proper patient identification (initials D, J) and 2nd portion biopsy are two pink-kelly tissues (0.2 x 0.1 x 0.1 cm and 0.2 x 0.2 x 0.2 cm). Entirely submitted in A1. B. ?Received in formalin labelled with proper patient identification (initials D, J) and antrum and body is a single pink-kelly tissue fragment (0.4 x 0.3 x 0.2 cm). Submitted intact in B1. C. ?Received in formalin labelled with proper patient identification (initials D, J) and GE junction are three pink-kelly tissues (0.2 x 0.2 x 0.2 cm, 0.2 x 0.2 x 0.1 cm, and 0.2 x 0.2 x 0.1 cm). Entirely submitted in C1. Dr. Castro 12/03/2014 9:41 AM End of Report [facility] 12/01/2014 18:1 3 EDT 12/02/2014 18:13 EDT Jesu Field MD PATHOLOGY ORDERABLES [facility] [address] [place] [address] documented in this encounter Visit Diagnoses Not on filedocumented in this encounter Care Teams Life Advisor Relationship Specialty Start Date End Date Unknown, Provider, PCP - General 01/15/11 12/04/14 documented as of this encounter
[2024-02-13 10:00] LABS: Anion Gap 8.6 mmol/L (3-11); BUN 19 mg/dL (7-18); CO2 28.4 mmol/L (21.0-32.0); CREATININE 0.8 mg/dL (0.55-1.02); Calcium 9.4 mg/dL (8.5-10.1); Chloride 107 mmol/L (98-107); Estimated GFR 79.22 (mL/min/1.73m2); Glucose 106 mg/dL (74-106); Magnesium 2.3 mg/dL (1.8-2.4); Potassium 4.4 mmol/L (3.5-5.1); Sodium 144 mmol/L (136-145)
== END 2024-02-13 02:26 | disposition home or self-care (01) ==
LOC: LBO 02:27
PROVIDERS: PCP Family Medicine; Visit Provider Family Medicine
DX: I10 Essential (primary) hypertension (principal); G47.62 Sleep related leg cramps
CPT/HCPCS: 36415; 80048; 83735

== ENCOUNTER 2024-12-31 00:26 | Outpatient (CLI) | payer OTHER, SELFPAY ==
--- NOTE | 2024-12-31 08:30 | DI.US_ITS ---
APPROVED REPORT EXAM: Comprehensive 2D, Doppler, and color-flow Echocardiogram Patient Location: Out-Patient Project Admin: Ange Sorenson RDCS (AE) Indications: Recheck Aortic Stenosis and Aortic insufficiency Other Information Study Quality: Adequate Conclusion Normal left ventricular chamber size. Basilar septal hypertrophy. EF is 55 to 60% Normal right ventricular size and function Both atria are normal in size Aortic valve is calcified. There is mild aortic regurgitation. There is moderate aortic stenosis with a peak gradient of 42, mean 25 mmHg Mild mitral regurgitation Ascending aorta measures 4.14 cm Wall motion Left Ventricle The left ventricle is normal size. The overall left ventricular systolic function appears normal. Moderate basal septal hypertrophy is present. There is normal LV segmental wall motion. There is no ventricular septal defect visualized. LVEF is 50-55%. Right Ventricle The right ventricle is normal size. The right ventricular systolic function is normal. Atria The left atrium size is normal. The right atrium size is normal. The interatrial septum is intact with no evidence for an atrial septal defect. Aortic Valve Aortic valve is calcified. Number of aortic valve leaflets could not be assessed. Moderate aortic stenosis. Peak aortic valve gradient is42.54mmHg. Highest mean aortic valve gradient is 25.22_mmHg. Calculated STEVEN by the continuity equation is 1.0__cm2. Mild aortic regurgitation. Mitral Valve The mitral valve is normal in structure. No evidence of mitral valve stenosis. Mild mitral regurgitation. Tricuspid Valve The tricuspid valve is normal in structure. There is no tricuspid valve stenosis. Trace tricuspid regurgitation. Pulmonic Valve The pulmonary valve is normal in structure. There is no pulmonic valvular stenosis. There is no pulmonic valvular regurgitation. Great Vessels The aortic root is normal in size. The ascending aorta is moderately dilated. Aortic arch is normal in caliber. IVC is normal in size and collapses >50% with inspiration. Pericardium There is no pericardial effusion. 2D Dimensions IVSD d PLAX 1.55 cm F: 0.6-1.0 Ao Root d 3.39 cm F: 2.7 - 3.3 LVPW d PLAX 1.06 cm F: 0.6 - 1.0 Ao Asc Diam d 4.14 cm F: 2.3 - 3.1 LVID d PLAX 4.31 cm F: 3.8 - 5.2 LVDs 3.09 cm F: 2.2 - 3.5 LV EF Teichholz 55.0 % FS 28.35 % LV EDV (Teich) 83.5 mL LV ESV (Teich) 37.6 mL M-Mode TAPSE 2.15 cm (M/F) >1.7 Auto EF LV EDV A4C 155.6 mL LV EDV A2C 144.7 mL LV EDV BP 149.8 mL LV ESV A4C 77.2 mL LV ESV A2C 72.6 mL LV ESV BP 75.1 mL LVEF(%) A4C 50.4 % LVEF(%) A2C 49.8 % LVEF(%) BP 49.8 % LV SV A4C 78.4 ml LV SV A2C 72.1 ml LV SV BP 74.7 ml LV CO A4C 5.6 L/min LV CO A2C 4.5 L/min LV CO BP 5.0 L/min HR A4C 70.98 BPM HR A2C 62.18 BPM LV EDV Index (BP) LA Volume LA Length A4C 3.9 cm LA Length A2C 4.3 cm LA Area A4C s 13.22 cm2 LA Area A2C s 14.63 cm2 LA Vol A4C A-L 38.02 mL LA Vol A2C A-L 42.14 mL LA Vol Biplane A-L 42.1 mL LA Vol/BSA A4C A-L LA Vol/BSA A2C A-L LA Vol/BSA BP A-L 23.4 mL/m2 LA Vol A4C MOD 34.6 mL LA Vol A2C MOD 40.3 mL LA Vol BP MOD 39.1 mL RA Volume RA Area A4C 8.2 cm2 RA ESV A4C (A-L) 17.5mL RA Vol/BSA A4C A-L RA Length A4C 3.2 cm RA ESV A4C (MOD) 16.5mL LV Diastology MV E' medial 0.067 (>0.07 m/s) MV E Vmax 0.78 (0.4-1.3 m/s) MV E/E' MED 11.64 (<14) MV A Vmax 1.15 (0.4-1.3 m/s) MV E' lateral 0.077 (>0.1 m/s) E/A Ratio 0.7 MV E/E' LAT 10.15 (<14) MV E' Average 0.072 m/s MV E/E'(average) 10.84 Aortic Valve AoV Vmax 3.26 m/s LVOT Vmax 1.13 m/s AoV Peak Grad 61.4 mmHg LVOT Peak Grad 5.1 mmHg AoV Area (Vmax) 1.08 cm2 LVOT VTI 0.300 m AoV VTI 0.915 m LVOT Mean Grad 2.5 mmHg AoV Mean Morgan. 2.44 m/s LVOT SV 93.41 mL AoV Mean Grad 25.2 mmHg LVOT Diam s 1.95 cm AoV Area (VTI) 1.02 cm2 AV Regurg Peak Gr. 42.54 mmHg Velocity Ratio 0.35 AR Decel Mccurtain 1.8m/sec2 AR DT 2607 msec AR PHT 756 msec AR Vmax 4.48 m/s Mitral Valve MV DT 327 (160-240 msec) MV Vmax TIPS 1.23 m/s MV Mean Grad 2.1 (<2mmHg) MV VTI 0.467 m Pulmonary Valve PV Vmax 1.01 (0.5-1.5 m/s) RVOT Vmax 0.78 m/s PV Peak Grad 4.1 mmHg RVOT Peak Gr. 2.5 mmHg PV Mean Morgan 0.67 m/s RVOT VTI 0.162 m PV Mean Grad 2.1 mmHg RVOT Mean Gr. 1.3 mmHg Tricuspid Valve TV S' 0.12 m/s
== END 2024-12-31 00:46 ==
PROVIDERS: PCP Family Medicine; Visit Provider Internal Medicine Cardiovascular Disease
DX: I35.1 Nonrheumatic aortic (valve) insufficiency (principal)
CPT/HCPCS: 93306

== ENCOUNTER 2025-01-10 08:30 | Outpatient (CLI) | payer OTHER, SELFPAY ==
--- NOTE | 2025-01-10 08:30 | RT.EKG_ITS ---
APPROVED REPORT Exam: Resting ECG Reason for Exam: evaluate cardiac status Patient Location: O HR:70 bpm ECG Measurements Heart Rate 70 AXIS WI 180 P 25 QRSd 99 QRS 36 QT 431 T 103 QTc 466 Conclusion Sinus rhythm...normal P axis, V-rate 50- 99 Abnormal inferior Q waves...Qs add to 80 mS in II III aVF Repol abnrm suggests ischemia, lateral leads...ST dep, T neg, I aVL V5 V6
== END 2025-01-10 08:31 | disposition home or self-care (01) ==
LOC: DI.CARD 08:31
PROVIDERS: PCP Family Medicine; Visit Provider Registered Nurse
DX: I35.1 Nonrheumatic aortic (valve) insufficiency (principal); I99.8 Other disorder of circulatory system
CPT/HCPCS: 93010

== ENCOUNTER 2025-02-15 02:14 | Outpatient (CLI) | payer OTHER, SELFPAY ==
--- NOTE | 2025-02-15 11:52 | DI.MAMMO_ITS ---
Exam(s) MAMMO SCREENING EXAM: MAMMO SCREENING CLINICAL HISTORY: screening,Z12.39 TECHNIQUE: Mammograms were interpreted according to the usual protocol including computer analysis with CAD system, tomosynthesis and C-view imaging. COMPARISON: 2015 through 2023 FINDINGS: The breasts are composed of scattered fibroglandular densities, Breast Density category B. No suspicious masses or suspicious microcalcifications are seen. No skin thickening or abnormal axillary lymph nodes are seen. There has been no significant change from prior exams. IMPRESSION: BI-RADS Category 1, Negative mammogram Yearly screening mammography is recommended. Breast Density - Category B - There are scattered areas of fibroglandular density. Breast density Category C or D implies that the patient has dense breast tissue. Dense breast tissue can make it harder to find cancer on a mammogram. Dense breast tissue is also associated with an increased risk of breast cancer. This information about the result of the mammogram report was provided to the patient to raise their awareness. Use this report when you speak with the patient about their risks for breast cancer, which includes their family history. At that time, you may recommend additional screening tests (Ultrasound or MRI) as these tests may add significant information. A negative radiographic report should not delay biopsy if a dominant or clinically suspicious mass is present. Up to ten percent of cancers are not identified on mammography. A negative report may reinforce clinical impression. Adenosis and dense breasts may obscure an underlying neoplasm. False positive reports average 6 to 10%. Patient will receive a letter notifying them of these results.
== END 2025-02-15 02:34 ==
LOC: DI 02:14
PROVIDERS: PCP Family Medicine; Visit Provider Family Medicine
DX: Z12.31 Encounter for screening mammogram for malignant neoplasm of breast (principal); R92.323 Mammographic fibroglandular density, bilateral breasts
CPT/HCPCS: 77063; 77067

== ENCOUNTER 2025-02-15 03:25 | Outpatient (CLI) | payer OTHER, SELFPAY ==
[2025-02-15 13:39] LABS: Anion Gap 9.2 mmol/L (3-11); BUN 16 mg/dL (7-18); CO2 27.8 mmol/L (21.0-32.0); Calcium 9.1 mg/dL (8.5-10.1); Calculated LDL 118 mg/dL (<100); Chloride 104 mmol/L (98-107); Cholesterol 179 mg/dL (<200); Estimated GFR 92.41 (mL/min/1.73m2); Glucose 96 mg/dL (74-106); HDL Cholesterol 39 mg/dL (>or=50); Potassium 4.5 mmol/L (3.5-5.1); Sodium 141 mmol/L (136-145); Triglyceride 110 mg/dL (<150)
[2025-02-16 20:37] LABS: Hepatitis C Ab w Rflx HCV PCR Negative (Negative)
== END 2025-02-15 03:26 | disposition home or self-care (01) ==
LOC: LBO 03:26
PROVIDERS: PCP Family Medicine; Visit Provider Family Medicine
DX: Z13.1 Encounter for screening for diabetes mellitus (principal); Z11.59 Encounter for screening for other viral diseases; Z13.6 Encounter for screening for cardiovascular disorders
CPT/HCPCS: 36415; 80048; 80061; 86803

== ENCOUNTER → 2025-03-11 03:23 | Outpatient (CLI) | payer OTHER, SELFPAY ==
--- NOTE | 2025-03-11 15:14 | DI.DEXA_ITS ---
Exam(s) XR DEXA BONE DENSITY W/WO DEEP EXAM: XR DEXA BONE DENSITY W/WO DEEP CLINICAL HISTORY: screening,MENOPAUSAL DISORDER,N95.9 TECHNIQUE: Routine DEXA evaluation of the lumbar spine, hip, or forearm. COMPARISON: No exams were available for comparison FINDINGS: Performed on a Hologic unit. Lateral image: No compression fracture evident. Lumbar Spine total T-score: -0.9. This is within normal range. Hip total T-score:-1.5 which is osteopenia range. Independent reading at the level of the femoral neck yields T-score of -2.2 which is also osteopenia range. Forearm total T-score: -3.2 which is osteoporosis range IMPRESSION: Bone mineral density measures in the osteoporosis range at the level the wrist. Fracture risk at this level is high.. Bone mineral density measures in the osteopenia range for the hip. Fracture risk at this level is moderate. Bone mineral density measures in the normal range for the lumbar spine. Fracture risk at this level is low. Note: Any spine fracture indicates 5x risk for subsequent spine fracture and 2x risk for subsequent hip fracture. World Health Organization criteria for BMD interpretation classify patients: Normal...... T- Score at or above -1.0 Osteopenic... T- Score between -1.0 and -2.5 Osteoporosis... T-Score at or below -2.5
== END ==
LOC: DI 03:23
PROVIDERS: PCP Family Medicine; Visit Provider Family Medicine
DX: N95.9 Unspecified menopausal and perimenopausal disorder (principal)
CPT/HCPCS: 77080